=== PATIENT | female | born 1975 | race Caucasian/White ===

== ENCOUNTER 2022-01-02 21:35 | Inpatient (IN) ==
[2022-01-02] MEDS ORDERED: methylPREDNISolone SOD SUC 125 MG/2 ML VIAL IV STA (23:04)
[2022-01-02] MEDS ORDERED: ONDANSETRON ODT 4 MG TABLET PO STA (23:04)
[2022-01-02] MEDS ORDERED: FUROSEMIDE 100 MG/10 ML VIAL IV STA (23:04)
[2022-01-02] MEDS ORDERED: ONDANSETRON 4 MG/2 ML VIAL ONE (23:17)
[2022-01-02 23:25] LABS: Basophils # 0.1 10*3/uL (0.0-0.2); Basophils % 0.2 % (0.0-0.8); Eosinophils % 0.1 % (0.00-10.9); Hematocrit 21.8 VOL% (35.7-47.0); Hemoglobin 7.5 GM/DL (12.0-16.0); Immature Granulocytes % 5.1 %; Immature Granulocytes Absolute 1.03 #; Lymphocytes # 2.4 10*3/uL (1.4-4.0); Lymphocytes % 11.8 % (21.3-54.2); Mean Corpuscular HGB Conc 34.4 GM/DL (32-36); Mean Corpuscular Volume 87.9 FL (87-102); Mean Platelet Volume 8.6 FL (9.6-12.0); Monocytes # 1.4 10*3/uL (0.11-0.8); Monocytes % 6.8 % (1.7-12.7); Platelet Count 352 T/CUMM (130-400); Red Blood Count 2.48 MC/CUMM (3.8-5.5); Red Cell Distribution Width 15.6 % (9.3-17.3); White Blood Count 20.4 T/CUMM (4-12)
[2022-01-02] MEDS ORDERED: ALBUTEROL NEB SOLN 5 MG/ML 20 ML/BOTTLE CONT NEB SCH (23:30)
[2022-01-02] MEDS ORDERED: ONDANSETRON 4 MG/2 ML VIAL IV STA (23:30)
[2022-01-02] MEDS ORDERED: VANCOMYCIN INJ 1,000 MG in SODIUM CHLORIDE 0.9% 250 ML IV STA (23:33)
[2022-01-02] MEDS ORDERED: PIPERACILLIN/TAZOBACTAM 3,375 MG in SODIUM CHLORIDE 0.9% 100 ML IV STA (23:33)
[2022-01-02 23:37] LABS: Arterial Base Excess iSTAT -3 MMOL/L (-2.5-2.5); Arterial Bicarbonate iSTAT 20.4 MMOL/L (20-26); Arterial O2 Saturation iSTAT 96 % (95-100); Arterial PCO2 iSTAT 29 MM HG (35-48); Arterial PO2 iSTAT 78 MM HG (80-95); Arterial Total CO2 iSTAT 21 MMO/L (23-27); Arterial pH iSTAT 7.453 (7.35-7.45)
[2022-01-02 23:38] LABS: Alanine Aminotransferase < 9 U/L (13-56); Albumin 1.1 G/DL (3.4-5.0); Alkaline Phosphatase 56 U/L (45-117); Aspartate Amino Transferase 16 U/L (0-37); Blood Urea Nitrogen 35 MG/DL (7-18); Calcium 7.2 MG/DL (8.5-10.1); Carbon Dioxide 21 MMOL/L (21-32); Chloride 99 MMOL/L (98-107); Estimated Glom Filtration Rate 50 ML/MIN; Glucose 97 MG/DL (74-106); Osmolality,Calculated 260.4 MOS/KG (273-304); Sodium 126 MMOL/L (136-145); Total Protein 6.4 G/DL (6.4-8.2)
[2022-01-02 23:46] LABS: Lymphocytes 9 % (20-55); Platelet Estimate Increased; Total Cells Counted 100
[2022-01-02 23:51] LABS: INR 1.1; PT Patient Result 12.6 SECS (10.5-12.0)
[2022-01-03 00:32] LABS: Bacteria,Urine Occasional /HPF (Few); Mucus,Urine Occasional /LPF (Occasional); RBC,Urine 21 /HPF (0-4); Squamous Epithelial Cell,Urine Occasional /HPF (0-10)
[2022-01-03 00:33] LABS: Urine Appearance SL CLOUDY (Clear); Urine Color Yellow (Yellow)
[2022-01-03 00:34] LABS: Bilirubin,Urine Negative (Negative); Blood, Urine Large mg/dL (Negative); Glucose,Urine (UA) Negative (Negative); Ketones,Urine Negative (Negative); Nitrite,Urine Negative (Negative); Protein,Urine 100 MG/DL; Urine Urobilinogen 0.2 EU/DL (<2.0)
[2022-01-03 00:55] LABS: Barbiturates Screen,Urine Negative (Negative); Benzodiazepines Screen,Urine Negative (Negative); Cannabinoid Screen,Urine Negative (Negative); Opiate Screen,Urine Positive (Negative); Phencyclidine Screen,Urine Negative (Negative)
[2022-01-03] MEDS ORDERED: MAGNESIUM SULF RIDER 4 GM/100 ML PREMIX IV PRN (00:59)
[2022-01-03] MEDS ORDERED: GLUCAGON 1 MG VIAL IM PRN (00:59)
[2022-01-03] MEDS ORDERED: DEXTROSE 10% 250 ML BAG IV PRN ×2 (01:15→11:00)
[2022-01-03] MEDS: ALBUTEROL 2.5 MG/3 ML NEB RESP TX SCH ×4 (01:29→19:27)
[2022-01-03] MEDS ORDERED: ENOXAPARIN 40 MG/0.4 ML SYRINGE SUBCUT ONE (01:30)
[2022-01-03] MEDS: NICOTINE 21 MG/24 HR PATCH TRANSDERM SCH ×2 (03:03→09:18)
[2022-01-03] MEDS: ENOXAPARIN 80 MG/0.8 ML SYRINGE SUBCUT SCH ×2 (03:07→15:43)
[2022-01-03] MEDS ORDERED: INFLUENZA VIRUS VACCINE 0.5 ML SYRINGE IM ONE (03:19)
[2022-01-03] MEDS: AZITHROMYCIN INJ 500 MG in SODIUM CHLORIDE 0.9% 250 ML IV SCH (03:38)
[2022-01-03 06:31] LABS: Basophils # 0.1 10*3/uL (0.0-0.2); Basophils % 0.3 % (0.0-0.8); Hematocrit 20.9 VOL% (35.7-47.0); Hemoglobin 7.3 GM/DL (12.0-16.0); Immature Granulocytes % 5.1 %; Immature Granulocytes Absolute 0.97 #; Lymphocytes # 0.9 10*3/uL (1.4-4.0); Lymphocytes % 4.8 % (21.3-54.2); Mean Corpuscular HGB Conc 34.9 GM/DL (32-36); Mean Corpuscular Volume 84.6 FL (87-102); Mean Platelet Volume 8.6 FL (9.6-12.0); Monocytes # 0.3 10*3/uL (0.11-0.8); Monocytes % 1.7 % (1.7-12.7); Neutrophils % 88.1 % (38.7-73.9); Platelet Count 343 T/CUMM (130-400); Red Blood Count 2.47 MC/CUMM (3.8-5.5); Red Cell Distribution Width 15.2 % (9.3-17.3)
[2022-01-03 06:36] LABS: Basophils # 0.1 10*3/uL (0.0-0.2); Basophils % 0.3 % (0.0-0.8); Eosinophils % 0.1 % (0.00-10.9); Hematocrit 21.4 VOL% (35.7-47.0); Hemoglobin 7.3 GM/DL (12.0-16.0); Immature Granulocytes % 4.6 %; Immature Granulocytes Absolute 0.88 #; Lymphocytes # 0.8 10*3/uL (1.4-4.0); Lymphocytes % 4.4 % (21.3-54.2); Mean Corpuscular HGB Conc 34.1 GM/DL (32-36); Mean Corpuscular Volume 86.6 FL (87-102); Mean Platelet Volume 8.5 FL (9.6-12.0); Monocytes # 0.3 10*3/uL (0.11-0.8); Monocytes % 1.6 % (1.7-12.7); Platelet Count 338 T/CUMM (130-400); Red Blood Count 2.47 MC/CUMM (3.8-5.5); Red Cell Distribution Width 15.4 % (9.3-17.3)
[2022-01-03 07:00] LABS: Calcium 7.7 MG/DL (8.5-10.1); Osmolality,Calculated 267.1 MOS/KG (273-304); Potassium 4.9 MMOL/L (3.5-5.1); Risk Ratio 5.73; Thyroid Stimulating Hormone 1.78 uIU/ml (0.358-3.74); VLDL Cholesterol 17.2 MG/DL
[2022-01-03 07:04] LABS: Band Neutrophils 2 % (0-10); Hypochromia 1+; Lymphocytes 3 % (20-55); Microcytosis 1+; Total Cells Counted 100
[2022-01-03 07:05] LABS: Platelet Estimate Normal; Target Cells Slight
[2022-01-03 07:09] LABS: Folate 5.95 NG/ML (5.38-24.0); Vitamin B12 766 PG/ML (211-911)
[2022-01-03 07:13] LABS: Band Neutrophils 5 % (0-10); Hypochromia 1+; Lymphocytes 3 % (20-55); Microcytosis 1+; Promyelocytes 1 %; Total Cells Counted 100
[2022-01-03 07:14] LABS: Target Cells Slight
[2022-01-03 08:17] LABS: Sedimentation Rate-Westergren 136 MM/HR (0-20)
[2022-01-03] MEDS: FUROSEMIDE 40 MG/4 ML VIAL IV SCH (08:45)
[2022-01-03] MEDS: DOCUSATE SODIUM 100 MG CAPSULE PO SCH ×2 (08:48→21:04)
[2022-01-03] MEDS: PIPERACILLIN/TAZOBACTAM 3,375 MG in SODIUM CHLORIDE 0.9% 100 ML IV SCH ×2 (08:49→15:43)
[2022-01-03] MEDS: metroNIDAZOLE 500 MG TABLET PO SCH ×2 (08:50→21:04)
[2022-01-03] MEDS: guaiFENesin/DM ER 600-30 MG TABLET PO SCH ×2 (08:51→21:04)
[2022-01-03] MEDS: NYSTATIN 500,000 UNIT/5 ML UDCUP SWISH/SWAL SCH ×4 (08:51→21:04)
[2022-01-03] MEDS: PANTOPRAZOLE 40 MG TABLET PO SCH (08:53)
[2022-01-03] MEDS ORDERED: CALCIUM CARBONATE CHEW 500 MG TABLET PO SCH (09:00)
[2022-01-03 09:12] LABS: Hepatitis B Core IgM Quant 0.15 Index; Hepatitis B Surface Ag Quant < 0.10 Index; Hepatitis B Surface Ag Result Non-Reactive (NonReactive); Hepatitis C Virus Ab Quant > 11.00 Index; Hepatitis C Virus Ab Result Reactive (NonReactive)
[2022-01-03 09:30] LABS: Hemoglobin A1 (Alkaline) 98.3 % (96.5-98.5); Hemoglobin A2 (Alkaline) 1.7 % (1.5-3.5)
[2022-01-03] MEDS: ACETAMINOPHEN 325 MG TABLET PO PRN ×3 (09:33→21:14)
[2022-01-03] MEDS ORDERED: ALBUMIN 5% 25 GM/500 ML VIAL IV ONE (12:30)
[2022-01-03 12:34] LABS: % Iron Saturation 12.4 % (18-50)
[2022-01-03] MEDS: MENTHOL/ZINC OXIDE OINT 71 GM JAR TOP SCH ×2 (13:35→21:03)
[2022-01-03] MEDS ORDERED: ALBUMIN 25% 25 GM/100 ML VIAL IV ONE (14:30)
[2022-01-03] MEDS ORDERED: VANCOMYCIN INJ 1,000 MG in SODIUM CHLORIDE 0.9% 250 ML IV SCH (16:00)
[2022-01-03] MEDS ORDERED: ENOXAPARIN 40 MG/0.4 ML SYRINGE SUBCUT SCH (21:00)
[2022-01-04] MEDS: ALBUTEROL 2.5 MG/3 ML NEB RESP TX SCH ×4 (00:07→19:26)
[2022-01-04] MEDS: PIPERACILLIN/TAZOBACTAM 3,375 MG in SODIUM CHLORIDE 0.9% 100 ML IV SCH ×4 (00:15→23:31)
[2022-01-04] MEDS: ENOXAPARIN 80 MG/0.8 ML SYRINGE SUBCUT SCH ×2 (02:56→15:03)
[2022-01-04] MEDS: AZITHROMYCIN INJ 500 MG in SODIUM CHLORIDE 0.9% 250 ML IV SCH (04:04)
[2022-01-04 06:15] LABS: Basophils % 0.2 % (0.0-0.8); Eosinophils % 0.1 % (0.00-10.9); Hematocrit 22.2 VOL% (35.7-47.0); Hemoglobin 7.2 GM/DL (12.0-16.0); Immature Granulocytes % 3.6 %; Immature Granulocytes Absolute 0.48 #; Lymphocytes # 1.7 10*3/uL (1.4-4.0); Lymphocytes % 12.9 % (21.3-54.2); Mean Corpuscular HGB Conc 32.4 GM/DL (32-36); Mean Corpuscular Volume 87.4 FL (87-102); Mean Platelet Volume 8.4 FL (9.6-12.0); Monocytes # 0.8 10*3/uL (0.11-0.8); Monocytes % 6.1 % (1.7-12.7); Neutrophils % 77.1 % (38.7-73.9); Platelet Count 356 T/CUMM (130-400); Red Blood Count 2.54 MC/CUMM (3.8-5.5); Red Cell Distribution Width 15.8 % (9.3-17.3); White Blood Count 13.3 T/CUMM (4-12)
[2022-01-04 06:27] LABS: Calcium 7.6 MG/DL (8.5-10.1); Ferritin 725.5 ng/mL (8-252); Osmolality,Calculated 276.7 MOS/KG (273-304); Potassium 4.3 MMOL/L (3.5-5.1)
[2022-01-04 06:44] LABS: Anisocytosis 2+; Platelet Estimate Normal; Target Cells Few
[2022-01-04 06:45] LABS: Burr Cells Few; Poikilocytosis Slight
[2022-01-04] MEDS ORDERED: ALBUMIN 25% 25 GM/100 ML VIAL IV ONE (08:18)
[2022-01-04] MEDS: DOCUSATE SODIUM 100 MG CAPSULE PO SCH ×2 (08:23→20:24)
[2022-01-04] MEDS: PANTOPRAZOLE 40 MG TABLET PO SCH (08:23)
[2022-01-04] MEDS: MENTHOL/ZINC OXIDE OINT 71 GM JAR TOP SCH ×2 (08:23→20:23)
[2022-01-04] MEDS: metroNIDAZOLE 500 MG TABLET PO SCH ×2 (08:23→20:24)
[2022-01-04] MEDS: ACETAMINOPHEN 325 MG TABLET PO PRN ×2 (08:24→23:40)
[2022-01-04] MEDS: guaiFENesin/DM ER 600-30 MG TABLET PO SCH ×2 (08:24→20:23)
[2022-01-04] MEDS: NYSTATIN 500,000 UNIT/5 ML UDCUP SWISH/SWAL SCH ×4 (08:26→20:24)
[2022-01-04] MEDS: FUROSEMIDE 40 MG/4 ML VIAL IV SCH (08:30)
[2022-01-04] MEDS: FERRIC GLUCONATE COMPLEX 125 MG in SODIUM CHLORIDE 0.9% 100 ML IV SCH (11:42)
[2022-01-04] MEDS: NICOTINE 21 MG/24 HR PATCH TRANSDERM SCH (12:00)
[2022-01-04] MEDS: oxyCODONE IR 5 MG TABLET PO SCH ×3 (12:43→20:24)
[2022-01-05] MEDS: ALBUTEROL 2.5 MG/3 ML NEB RESP TX SCH ×4 (00:51→19:32)
[2022-01-05] MEDS: AZITHROMYCIN INJ 500 MG in SODIUM CHLORIDE 0.9% 250 ML IV SCH (04:17)
[2022-01-05] MEDS: ENOXAPARIN 80 MG/0.8 ML SYRINGE SUBCUT SCH ×2 (04:21→16:55)
[2022-01-05 05:51] LABS: Basophils % 0.3 % (0.0-0.8); Eosinophils % 0.1 % (0.00-10.9); Hematocrit 22.3 VOL% (35.7-47.0); Hemoglobin 7.4 GM/DL (12.0-16.0); Immature Granulocytes % 1.9 %; Immature Granulocytes Absolute 0.27 #; Lymphocytes # 1.5 10*3/uL (1.4-4.0); Lymphocytes % 10.6 % (21.3-54.2); Mean Corpuscular HGB Conc 33.2 GM/DL (32-36); Mean Corpuscular Volume 88.5 FL (87-102); Mean Platelet Volume 8.2 FL (9.6-12.0); Neutrophils % 80.1 % (38.7-73.9); Platelet Count 449 T/CUMM (130-400); Red Blood Count 2.52 MC/CUMM (3.8-5.5); Red Cell Distribution Width 15.9 % (9.3-17.3)
[2022-01-05 05:56] LABS: Alanine Aminotransferase < 6 U/L (13-56); Albumin 1.3 G/DL (3.4-5.0); Alkaline Phosphatase 44 U/L (45-117); Aspartate Amino Transferase 13 U/L (0-37); Bilirubin,Total < 0.39 MG/DL (0.20-1.00); Blood Urea Nitrogen 40 MG/DL (7-18); Calcium 7.5 MG/DL (8.5-10.1); Carbon Dioxide 21 MMOL/L (21-32); Chloride 103 MMOL/L (98-107); Estimated Glom Filtration Rate 51 ML/MIN; Glucose 127 MG/DL (74-106); Osmolality,Calculated 275.5 MOS/KG (273-304); Potassium 4.1 MMOL/L (3.5-5.1); Sodium 132 MMOL/L (136-145); Total Protein 5.8 G/DL (6.4-8.2)
[2022-01-05] MEDS: DOCUSATE SODIUM 100 MG CAPSULE PO SCH ×2 (10:00→20:23)
[2022-01-05] MEDS: guaiFENesin/DM ER 600-30 MG TABLET PO SCH ×2 (10:00→20:23)
[2022-01-05] MEDS: metroNIDAZOLE 500 MG TABLET PO SCH ×2 (10:00→20:23)
[2022-01-05] MEDS: PANTOPRAZOLE 40 MG TABLET PO SCH (10:00)
[2022-01-05] MEDS: NYSTATIN 500,000 UNIT/5 ML UDCUP SWISH/SWAL SCH ×4 (10:00→20:23)
[2022-01-05] MEDS: VANCOMYCIN INJ 1,250 MG in SODIUM CHLORIDE 0.9% 250 ML IV SCH (10:01)
[2022-01-05] MEDS: FERRIC GLUCONATE COMPLEX 125 MG in SODIUM CHLORIDE 0.9% 100 ML IV SCH (10:01)
[2022-01-05] MEDS: PIPERACILLIN/TAZOBACTAM 3,375 MG in SODIUM CHLORIDE 0.9% 100 ML IV SCH ×3 (10:01→23:44)
[2022-01-05] MEDS: MENTHOL/ZINC OXIDE OINT 71 GM JAR TOP SCH ×2 (10:02→20:25)
[2022-01-05] MEDS: oxyCODONE IR 5 MG TABLET PO SCH ×4 (10:02→20:23)
[2022-01-05] MEDS: NICOTINE 21 MG/24 HR PATCH TRANSDERM SCH (10:02)
[2022-01-05] MEDS: FUROSEMIDE 40 MG/4 ML VIAL IV SCH (10:03)
[2022-01-05] MEDS: ALBUMIN 25% 25 GM/100 ML VIAL IV SCH (12:22)
[2022-01-06] MEDS: ALBUTEROL 2.5 MG/3 ML NEB RESP TX SCH ×3 (00:48→19:48)
[2022-01-06] MEDS: ENOXAPARIN 80 MG/0.8 ML SYRINGE SUBCUT SCH (03:46)
[2022-01-06] MEDS: AZITHROMYCIN INJ 500 MG in SODIUM CHLORIDE 0.9% 250 ML IV SCH (04:23)
[2022-01-06] MEDS ORDERED: SODIUM CHLORIDE 0.9% 1,000 ML IV SCH (06:00)
[2022-01-06 06:52] LABS: Basophils # 0.1 10*3/uL (0.0-0.2); Basophils % 0.4 % (0.0-0.8); Eosinophils % 0.2 % (0.00-10.9); Hematocrit 20.3 VOL% (35.7-47.0); Hemoglobin 6.8 GM/DL (12.0-16.0); Immature Granulocytes % 1.8 %; Lymphocytes # 1.6 10*3/uL (1.4-4.0); Lymphocytes % 13.8 % (21.3-54.2); Mean Corpuscular HGB Conc 33.5 GM/DL (32-36); Mean Corpuscular Volume 88.3 FL (87-102); Mean Platelet Volume 7.9 FL (9.6-12.0); Monocytes % 8.9 % (1.7-12.7); Neutrophils % 74.9 % (38.7-73.9); Platelet Count 444 T/CUMM (130-400); Red Cell Distribution Width 15.6 % (9.3-17.3); White Blood Count 11.3 T/CUMM (4-12)
[2022-01-06 07:09] LABS: Calcium 8.1 MG/DL (8.5-10.1); Osmolality,Calculated 268.5 MOS/KG (273-304); Potassium 3.6 MMOL/L (3.5-5.1)
[2022-01-06] MEDS ORDERED: ETOMIDATE 40 MG/20 ML VIAL IV ONE (08:07)
[2022-01-06] MEDS ORDERED: propofoL 200 MG/20 ML VIAL IV ONE (08:07)
[2022-01-06] MEDS ORDERED: LIDOCAINE 2% 5 ML VIAL ONE (08:07)
[2022-01-06 09:28] LABS: Hematocrit 19.5 VOL% (35.7-47.0); Hemoglobin 6.5 GM/DL (12.0-16.0)
[2022-01-06] MEDS: NYSTATIN 500,000 UNIT/5 ML UDCUP SWISH/SWAL SCH ×4 (09:40→21:00)
[2022-01-06] MEDS: PIPERACILLIN/TAZOBACTAM 3,375 MG in SODIUM CHLORIDE 0.9% 100 ML IV SCH (09:40)
[2022-01-06] MEDS: metroNIDAZOLE 500 MG TABLET PO SCH ×2 (09:41→21:00)
[2022-01-06] MEDS: MENTHOL/ZINC OXIDE OINT 71 GM JAR TOP SCH ×2 (09:41→21:00)
[2022-01-06] MEDS: DOCUSATE SODIUM 100 MG CAPSULE PO SCH ×2 (09:41→21:00)
[2022-01-06] MEDS: oxyCODONE IR 5 MG TABLET PO SCH ×4 (09:41→21:00)
[2022-01-06] MEDS: FUROSEMIDE 40 MG/4 ML VIAL IV SCH (09:42)
[2022-01-06] MEDS: ALBUMIN 25% 25 GM/100 ML VIAL IV SCH (09:49)
[2022-01-06] MEDS: NICOTINE 21 MG/24 HR PATCH TRANSDERM SCH (09:52)
[2022-01-06] MEDS: guaiFENesin/DM ER 600-30 MG TABLET PO SCH ×2 (09:57→21:00)
[2022-01-06] MEDS: PANTOPRAZOLE 40 MG TABLET PO SCH (09:57)
[2022-01-06] MEDS: FERRIC GLUCONATE COMPLEX 125 MG in SODIUM CHLORIDE 0.9% 100 ML IV SCH (10:25)
[2022-01-06] MEDS: VANCOMYCIN INJ 1,250 MG in SODIUM CHLORIDE 0.9% 250 ML IV SCH (11:22)
[2022-01-06] MEDS ORDERED: SODIUM CHLORIDE 0.9% 1,000 ML IV PRN (11:56)
[2022-01-06] MEDS: POLYETHYLENE GLYCOL POWDER 17 GM PACK PO SCH (17:05)
[2022-01-06] MEDS: ACETAMINOPHEN 325 MG TABLET PO PRN (17:48)
[2022-01-06] MEDS: cefTRIAXone 1,000 MG in SODIUM CHLORIDE 0.9% 100 ML IV SCH (21:00)
[2022-01-07] MEDS: ALBUTEROL 2.5 MG/3 ML NEB RESP TX SCH ×4 (01:02→20:43)
[2022-01-07] MEDS: AZITHROMYCIN INJ 500 MG in SODIUM CHLORIDE 0.9% 250 ML IV SCH (04:30)
[2022-01-07] MEDS ORDERED: LACTATED RINGERS 1,000 ML IV SCH (06:30)
[2022-01-07 07:14] LABS: Basophils # 0.1 10*3/uL (0.0-0.2); Basophils % 0.6 % (0.0-0.8); Eosinophils # 0.1 10*3/uL (0.0-0.87); Eosinophils % 0.4 % (0.00-10.9); Hematocrit 23.2 VOL% (35.7-47.0); Hemoglobin 7.8 GM/DL (12.0-16.0); Immature Granulocytes % 1.8 %; Immature Granulocytes Absolute 0.22 #; Lymphocytes # 1.9 10*3/uL (1.4-4.0); Lymphocytes % 15.3 % (21.3-54.2); Mean Corpuscular HGB Conc 33.6 GM/DL (32-36); Mean Corpuscular Volume 88.9 FL (87-102); Monocytes # 0.9 10*3/uL (0.11-0.8); Monocytes % 7.5 % (1.7-12.7); Neutrophils % 74.4 % (38.7-73.9); Platelet Count 464 T/CUMM (130-400); Red Blood Count 2.61 MC/CUMM (3.8-5.5); White Blood Count 12.1 T/CUMM (4-12)
[2022-01-07 07:34] LABS: Alanine Aminotransferase < 6 U/L (13-56); Albumin 1.7 G/DL (3.4-5.0); Alkaline Phosphatase 33 U/L (45-117); Aspartate Amino Transferase 10 U/L (0-37); Blood Urea Nitrogen 22 MG/DL (7-18); Calcium 8.1 MG/DL (8.5-10.1); Carbon Dioxide 23 MMOL/L (21-32); Chloride 104 MMOL/L (98-107); Estimated Glom Filtration Rate 85 ML/MIN; Glucose 92 MG/DL (74-106); Osmolality,Calculated 272.1 MOS/KG (273-304); Potassium 3.3 MMOL/L (3.5-5.1); Sodium 135 MMOL/L (136-145); Total Protein 6.4 G/DL (6.4-8.2)
[2022-01-07] MEDS ORDERED: ETOMIDATE 20 MG/10 ML VIAL IV ONE (08:01)
[2022-01-07] MEDS ORDERED: propofoL 200 MG/20 ML VIAL IV ONE (08:01)
[2022-01-07] MEDS ORDERED: LIDOCAINE 2% 5 ML VIAL ONE (08:01)
[2022-01-07] MEDS: NYSTATIN 500,000 UNIT/5 ML UDCUP SWISH/SWAL SCH ×4 (10:34→21:15)
[2022-01-07] MEDS: guaiFENesin/DM ER 600-30 MG TABLET PO SCH ×2 (10:35→21:15)
[2022-01-07] MEDS: PANTOPRAZOLE 40 MG TABLET PO SCH (10:35)
[2022-01-07] MEDS: metroNIDAZOLE 500 MG TABLET PO SCH ×2 (10:35→21:15)
[2022-01-07] MEDS: DOCUSATE SODIUM 100 MG CAPSULE PO SCH ×2 (10:35→21:15)
[2022-01-07] MEDS: oxyCODONE IR 5 MG TABLET PO SCH ×4 (10:36→21:15)
[2022-01-07] MEDS: NICOTINE 21 MG/24 HR PATCH TRANSDERM SCH (10:36)
[2022-01-07] MEDS: VANCOMYCIN INJ 1,250 MG in SODIUM CHLORIDE 0.9% 250 ML IV SCH (10:43)
[2022-01-07] MEDS: MENTHOL/ZINC OXIDE OINT 71 GM JAR TOP SCH ×2 (10:43→21:15)
[2022-01-07] MEDS: POLYETHYLENE GLYCOL POWDER 17 GM PACK PO SCH (10:44)
[2022-01-07] MEDS: FUROSEMIDE 40 MG/4 ML VIAL IV SCH (10:44)
[2022-01-07] MEDS: RACEPINEPHRINE 0.5 ML NEB RESP TX SCH ×2 (15:08→20:44)
[2022-01-07] MEDS: cefTRIAXone 1,000 MG in SODIUM CHLORIDE 0.9% 100 ML IV SCH (21:15)
[2022-01-08] MEDS: ALBUTEROL 2.5 MG/3 ML NEB RESP TX SCH (01:10)
[2022-01-08] MEDS: ENOXAPARIN 80 MG/0.8 ML SYRINGE SUBCUT SCH ×2 (02:30→16:09)
[2022-01-08] MEDS: ACETAMINOPHEN 325 MG TABLET PO PRN (04:40)
[2022-01-08 05:49] LABS: Basophils # 0.1 10*3/uL (0.0-0.2); Basophils % 0.7 % (0.0-0.8); Eosinophils # 0.1 10*3/uL (0.0-0.87); Eosinophils % 0.8 % (0.00-10.9); Hematocrit 22.6 VOL% (35.7-47.0); Hemoglobin 7.4 GM/DL (12.0-16.0); Lymphocytes # 1.7 10*3/uL (1.4-4.0); Lymphocytes % 16.8 % (21.3-54.2); Mean Corpuscular HGB Conc 32.7 GM/DL (32-36); Mean Corpuscular Volume 91.9 FL (87-102); Monocytes # 0.8 10*3/uL (0.11-0.8); Monocytes % 8.3 % (1.7-12.7); Neutrophils % 72.4 % (38.7-73.9); Platelet Count 399 T/CUMM (130-400); Red Blood Count 2.46 MC/CUMM (3.8-5.5)
[2022-01-08 06:08] LABS: Calcium 8.5 MG/DL (8.5-10.1); Osmolality,Calculated 271.2 MOS/KG (273-304); Potassium 3.2 MMOL/L (3.5-5.1)
[2022-01-08] MEDS: RACEPINEPHRINE 0.5 ML NEB RESP TX SCH ×4 (07:29→19:40)
[2022-01-08] MEDS: VANCOMYCIN INJ 1,250 MG in SODIUM CHLORIDE 0.9% 250 ML IV SCH (09:35)
[2022-01-08] MEDS: FUROSEMIDE 40 MG/4 ML VIAL IV SCH (09:36)
[2022-01-08] MEDS: NYSTATIN 500,000 UNIT/5 ML UDCUP SWISH/SWAL SCH ×4 (09:37→22:20)
[2022-01-08] MEDS: DOCUSATE SODIUM 100 MG CAPSULE PO SCH ×2 (09:37→22:19)
[2022-01-08] MEDS: guaiFENesin/DM ER 600-30 MG TABLET PO SCH ×2 (09:37→22:19)
[2022-01-08] MEDS: oxyCODONE IR 5 MG TABLET PO SCH ×4 (09:37→22:20)
[2022-01-08] MEDS: NICOTINE 21 MG/24 HR PATCH TRANSDERM SCH (09:38)
[2022-01-08] MEDS: PANTOPRAZOLE 40 MG TABLET PO SCH (09:38)
[2022-01-08] MEDS: MENTHOL/ZINC OXIDE OINT 71 GM JAR TOP SCH ×2 (09:38→22:27)
[2022-01-08] MEDS: POLYETHYLENE GLYCOL POWDER 17 GM PACK PO SCH (09:38)
[2022-01-08] MEDS: metroNIDAZOLE 500 MG TABLET PO SCH ×2 (09:38→22:19)
[2022-01-08] MEDS: POTASSIUM CHLORIDE 20 MEQ TABLET PO PRN ×3 (11:36→17:34)
[2022-01-08] MEDS: CEFTAROLINE 600 MG in SODIUM CHLORIDE 0.9% 100 ML IV SCH ×2 (14:05→22:24)
[2022-01-08] MEDS: MAGNESIUM SULF RIDER 2 GM/50 ML PREMIX IV PRN (16:09)
[2022-01-09] MEDS: CEFTAROLINE 600 MG in SODIUM CHLORIDE 0.9% 100 ML IV SCH ×2 (05:53→14:38)
[2022-01-09] MEDS: ENOXAPARIN 80 MG/0.8 ML SYRINGE SUBCUT SCH (05:55)
[2022-01-09 06:02] LABS: Basophils # 0.1 10*3/uL (0.0-0.2); Basophils % 0.7 % (0.0-0.8); Eosinophils # 0.1 10*3/uL (0.0-0.87); Eosinophils % 1.5 % (0.00-10.9); Hematocrit 21.2 VOL% (35.7-47.0); Immature Granulocytes % 1.4 %; Immature Granulocytes Absolute 0.11 #; Lymphocytes # 1.6 10*3/uL (1.4-4.0); Lymphocytes % 19.5 % (21.3-54.2); Mean Corpuscular Volume 89.8 FL (87-102); Mean Platelet Volume 7.8 FL (9.6-12.0); Monocytes # 0.7 10*3/uL (0.11-0.8); Monocytes % 8.8 % (1.7-12.7); Neutrophils % 68.1 % (38.7-73.9); Platelet Count 365 T/CUMM (130-400); Red Blood Count 2.36 MC/CUMM (3.8-5.5); White Blood Count 8.1 T/CUMM (4-12)
[2022-01-09 06:24] LABS: Eosinophils 2 % (0-10); Lymphocytes 15 % (20-55); Total Cells Counted 100
[2022-01-09 06:25] LABS: Calcium 7.9 MG/DL (8.5-10.1); Hypochromia 1+; Microcytosis 1+; Osmolality,Calculated 271.1 MOS/KG (273-304); Platelet Estimate Adequate; Potassium 3.5 MMOL/L (3.5-5.1)
[2022-01-09] MEDS: RACEPINEPHRINE 0.5 ML NEB RESP TX SCH ×4 (07:00→19:03)
[2022-01-09] MEDS: NYSTATIN 500,000 UNIT/5 ML UDCUP SWISH/SWAL SCH ×4 (09:19→22:42)
[2022-01-09] MEDS: PANTOPRAZOLE 40 MG TABLET PO SCH ×2 (09:20→22:42)
[2022-01-09] MEDS: metroNIDAZOLE 500 MG TABLET PO SCH ×2 (09:20→22:42)
[2022-01-09] MEDS: oxyCODONE IR 5 MG TABLET PO SCH ×4 (09:20→22:42)
[2022-01-09] MEDS: DOCUSATE SODIUM 100 MG CAPSULE PO SCH ×2 (09:20→22:42)
[2022-01-09] MEDS: POTASSIUM CHLORIDE 20 MEQ TABLET PO PRN (09:20)
[2022-01-09] MEDS: guaiFENesin/DM ER 600-30 MG TABLET PO SCH ×2 (09:20→22:42)
[2022-01-09] MEDS: NICOTINE 21 MG/24 HR PATCH TRANSDERM SCH (09:21)
[2022-01-09] MEDS: FERRIC GLUCONATE COMPLEX 125 MG in SODIUM CHLORIDE 0.9% 100 ML IV SCH (09:22)
[2022-01-09] MEDS: POLYETHYLENE GLYCOL POWDER 17 GM PACK PO SCH (09:22)
[2022-01-09] MEDS: MENTHOL/ZINC OXIDE OINT 71 GM JAR TOP SCH ×2 (09:22→22:42)
[2022-01-09] MEDS ORDERED: SODIUM CHLORIDE 0.9% 1,000 ML IV PRN (10:13)
[2022-01-09] MEDS ORDERED: ENOXAPARIN 40 MG/0.4 ML SYRINGE SUBCUT SCH (12:00)
[2022-01-09] MEDS: VANCOMYCIN INJ 1,500 MG in SODIUM CHLORIDE 0.9% 500 ML IV SCH (12:03)
[2022-01-09] MEDS: ENOXAPARIN 40 MG/0.4 ML SYRINGE SUBCUT SCH (22:42)
[2022-01-10] MEDS: CEFTAROLINE 600 MG in SODIUM CHLORIDE 0.9% 100 ML IV SCH ×4 (01:30→22:27)
[2022-01-10 05:47] LABS: Basophils # 0.1 10*3/uL (0.0-0.2); Basophils % 0.8 % (0.0-0.8); Eosinophils # 0.2 10*3/uL (0.0-0.87); Eosinophils % 2.9 % (0.00-10.9); Hematocrit 25.4 VOL% (35.7-47.0); Hemoglobin 8.3 GM/DL (12.0-16.0); Immature Granulocytes % 1.2 %; Immature Granulocytes Absolute 0.09 #; Lymphocytes # 1.2 10*3/uL (1.4-4.0); Lymphocytes % 15.9 % (21.3-54.2); Mean Corpuscular HGB Conc 32.7 GM/DL (32-36); Mean Corpuscular Volume 90.7 FL (87-102); Monocytes # 0.8 10*3/uL (0.11-0.8); Monocytes % 10.5 % (1.7-12.7); Neutrophils % 68.7 % (38.7-73.9); Platelet Count 382 T/CUMM (130-400); Red Cell Distribution Width 14.9 % (9.3-17.3); White Blood Count 7.5 T/CUMM (4-12)
[2022-01-10 06:06] LABS: Calcium 8.4 MG/DL (8.5-10.1); Osmolality,Calculated 270.1 MOS/KG (273-304); Potassium 3.6 MMOL/L (3.5-5.1)
[2022-01-10] MEDS: RACEPINEPHRINE 0.5 ML NEB RESP TX SCH ×4 (07:28→19:05)
[2022-01-10] MEDS: PANTOPRAZOLE 40 MG TABLET PO SCH ×2 (08:06→22:33)
[2022-01-10] MEDS: FUROSEMIDE 40 MG TABLET PO SCH (08:06)
[2022-01-10] MEDS: DOCUSATE SODIUM 100 MG CAPSULE PO SCH ×2 (08:06→22:27)
[2022-01-10] MEDS: guaiFENesin/DM ER 600-30 MG TABLET PO SCH ×2 (08:06→22:32)
[2022-01-10] MEDS: oxyCODONE IR 5 MG TABLET PO SCH ×4 (08:06→22:27)
[2022-01-10] MEDS: MENTHOL/ZINC OXIDE OINT 71 GM JAR TOP SCH ×2 (08:07→22:32)
[2022-01-10] MEDS: ENOXAPARIN 40 MG/0.4 ML SYRINGE SUBCUT SCH ×2 (08:15→22:32)
[2022-01-10] MEDS: POLYETHYLENE GLYCOL POWDER 17 GM PACK PO SCH (08:15)
[2022-01-10] MEDS: NICOTINE 21 MG/24 HR PATCH TRANSDERM SCH (08:15)
[2022-01-10] MEDS: VANCOMYCIN INJ 1,500 MG in SODIUM CHLORIDE 0.9% 500 ML IV SCH (08:16)
[2022-01-10] MEDS: NYSTATIN 500,000 UNIT/5 ML UDCUP SWISH/SWAL SCH ×4 (08:16→22:27)
[2022-01-10] MEDS ORDERED: diphenhydrAMINE CAP 25 MG CAPSULE PO ONE (08:55)
[2022-01-10] MEDS: FERRIC GLUCONATE COMPLEX 125 MG in SODIUM CHLORIDE 0.9% 100 ML IV SCH (09:55)
[2022-01-10] MEDS ORDERED: MAGNESIUM SULF RIDER 2 GM/50 ML PREMIX IV ONE (14:20)
[2022-01-10] MEDS ORDERED: INFLUENZA VIRUS VACCINE 0.5 ML SYRINGE IM ONE (15:00)
[2022-01-10] MEDS ORDERED: MAGNESIUM CITRATE 300 ML BOTTLE PO ONE (21:00)
[2022-01-11 04:38] LABS: Basophils # 0.1 10*3/uL (0.0-0.2); Basophils % 0.7 % (0.0-0.8); Eosinophils # 0.2 10*3/uL (0.0-0.87); Eosinophils % 2.3 % (0.00-10.9); Hematocrit 26.1 VOL% (35.7-47.0); Hemoglobin 8.4 GM/DL (12.0-16.0); Immature Granulocytes Absolute 0.08 #; Lymphocytes # 1.3 10*3/uL (1.4-4.0); Lymphocytes % 16.2 % (21.3-54.2); Mean Corpuscular HGB Conc 32.2 GM/DL (32-36); Mean Corpuscular Volume 92.6 FL (87-102); Monocytes # 0.8 10*3/uL (0.11-0.8); Monocytes % 9.3 % (1.7-12.7); Neutrophils % 70.5 % (38.7-73.9); Platelet Count 366 T/CUMM (130-400); Red Blood Count 2.82 MC/CUMM (3.8-5.5); Red Cell Distribution Width 14.9 % (9.3-17.3); White Blood Count 8.2 T/CUMM (4-12)
[2022-01-11 05:04] LABS: Calcium 8.3 MG/DL (8.5-10.1); Potassium 3.4 MMOL/L (3.5-5.1)
[2022-01-11] MEDS: CEFTAROLINE 600 MG in SODIUM CHLORIDE 0.9% 100 ML IV SCH ×2 (06:25→17:36)
[2022-01-11] MEDS: RACEPINEPHRINE 0.5 ML NEB RESP TX SCH ×4 (07:35→19:00)
[2022-01-11] MEDS: FERRIC GLUCONATE COMPLEX 125 MG in SODIUM CHLORIDE 0.9% 100 ML IV SCH (10:01)
[2022-01-11] MEDS: oxyCODONE IR 5 MG TABLET PO SCH ×4 (10:02→21:45)
[2022-01-11] MEDS: NYSTATIN 500,000 UNIT/5 ML UDCUP SWISH/SWAL SCH ×4 (10:02→21:45)
[2022-01-11] MEDS: FUROSEMIDE 40 MG TABLET PO SCH (10:02)
[2022-01-11] MEDS: ENOXAPARIN 40 MG/0.4 ML SYRINGE SUBCUT SCH ×2 (10:02→21:45)
[2022-01-11] MEDS: ASPIRIN CHEW 81 MG TABLET PO SCH (10:03)
[2022-01-11] MEDS: NICOTINE 21 MG/24 HR PATCH TRANSDERM SCH (10:03)
[2022-01-11] MEDS: guaiFENesin/DM ER 600-30 MG TABLET PO SCH ×2 (10:03→21:45)
[2022-01-11] MEDS: PANTOPRAZOLE 40 MG TABLET PO SCH ×2 (10:03→21:45)
[2022-01-11] MEDS ORDERED: POTASSIUM CHLORIDE 20 MEQ TABLET PO ONE (10:56)
[2022-01-11] MEDS: POLYETHYLENE GLYCOL POWDER 17 GM PACK PO SCH (12:28)
[2022-01-11] MEDS: DOCUSATE SODIUM 100 MG CAPSULE PO SCH ×2 (12:28→21:46)
[2022-01-11] MEDS: MENTHOL/ZINC OXIDE OINT 71 GM JAR TOP SCH ×2 (12:28→21:47)
[2022-01-11] MEDS: VANCOMYCIN INJ 1,500 MG in SODIUM CHLORIDE 0.9% 500 ML IV SCH (12:53)
[2022-01-12] MEDS: CEFTAROLINE 600 MG in SODIUM CHLORIDE 0.9% 100 ML IV SCH ×3 (01:41→23:49)
[2022-01-12 04:54] LABS: Basophils # 0.1 10*3/uL (0.0-0.2); Basophils % 0.7 % (0.0-0.8); Eosinophils # 0.2 10*3/uL (0.0-0.87); Eosinophils % 2.5 % (0.00-10.9); Hematocrit 26.8 VOL% (35.7-47.0); Hemoglobin 8.6 GM/DL (12.0-16.0); Immature Granulocytes % 0.9 %; Immature Granulocytes Absolute 0.08 #; Lymphocytes # 1.5 10*3/uL (1.4-4.0); Lymphocytes % 17.5 % (21.3-54.2); Mean Corpuscular HGB Conc 32.1 GM/DL (32-36); Mean Corpuscular Volume 90.8 FL (87-102); Mean Platelet Volume 7.8 FL (9.6-12.0); Monocytes # 0.8 10*3/uL (0.11-0.8); Monocytes % 9.7 % (1.7-12.7); Neutrophils % 68.7 % (38.7-73.9); Platelet Count 322 T/CUMM (130-400); Red Blood Count 2.95 MC/CUMM (3.8-5.5); Red Cell Distribution Width 14.7 % (9.3-17.3); White Blood Count 8.5 T/CUMM (4-12)
[2022-01-12 05:20] LABS: Calcium 7.9 MG/DL (8.5-10.1); Potassium 3.4 MMOL/L (3.5-5.1)
[2022-01-12] MEDS: BISACODYL 5 MG TABLET PO SCH ×3 (06:11→22:08)
[2022-01-12] MEDS: FERRIC GLUCONATE COMPLEX 125 MG in SODIUM CHLORIDE 0.9% 100 ML IV SCH (08:58)
[2022-01-12] MEDS: POTASSIUM CHLORIDE 20 MEQ TABLET PO PRN ×2 (09:45→14:01)
[2022-01-12] MEDS: ASPIRIN CHEW 81 MG TABLET PO SCH (09:45)
[2022-01-12] MEDS: guaiFENesin/DM ER 600-30 MG TABLET PO SCH ×2 (09:45→21:02)
[2022-01-12] MEDS: FUROSEMIDE 40 MG TABLET PO SCH (09:45)
[2022-01-12] MEDS: PANTOPRAZOLE 40 MG TABLET PO SCH ×2 (09:45→21:02)
[2022-01-12] MEDS: NICOTINE 21 MG/24 HR PATCH TRANSDERM SCH (09:45)
[2022-01-12] MEDS: DOCUSATE SODIUM 100 MG CAPSULE PO SCH ×2 (09:56→21:07)
[2022-01-12] MEDS: NYSTATIN 500,000 UNIT/5 ML UDCUP SWISH/SWAL SCH ×4 (09:56→21:03)
[2022-01-12] MEDS: MENTHOL/ZINC OXIDE OINT 71 GM JAR TOP SCH ×2 (09:56→21:03)
[2022-01-12] MEDS: VANCOMYCIN INJ 1,500 MG in SODIUM CHLORIDE 0.9% 500 ML IV SCH (10:15)
[2022-01-12] MEDS: oxyCODONE IR 5 MG TABLET PO SCH ×4 (10:15→21:02)
[2022-01-12] MEDS: RACEPINEPHRINE 0.5 ML NEB RESP TX SCH ×4 (10:39→21:04)
[2022-01-12] MEDS ORDERED: POTASSIUM CHLORIDE 20 MEQ TABLET PO ONE (12:00)
[2022-01-12] MEDS ORDERED: POLYETHYLENE GLYCOL POWDER 255 GM BOTTLE PO ONE (16:00)
[2022-01-13] MEDS: ACETAMINOPHEN 325 MG TABLET PO PRN (04:38)
[2022-01-13] MEDS: RACEPINEPHRINE 0.5 ML NEB RESP TX SCH ×2 (07:11→12:27)
[2022-01-13 07:15] LABS: Basophils # 0.1 10*3/uL (0.0-0.2); Basophils % 1.1 % (0.0-0.8); Eosinophils # 0.2 10*3/uL (0.0-0.87); Eosinophils % 2.5 % (0.00-10.9); Hemoglobin 8.4 GM/DL (12.0-16.0); Immature Granulocytes % 0.6 %; Immature Granulocytes Absolute 0.05 #; Lymphocytes # 1.4 10*3/uL (1.4-4.0); Lymphocytes % 16.7 % (21.3-54.2); Mean Corpuscular HGB Conc 31.1 GM/DL (32-36); Mean Corpuscular Volume 91.8 FL (87-102); Monocytes # 0.8 10*3/uL (0.11-0.8); Monocytes % 8.8 % (1.7-12.7); Neutrophils % 70.3 % (38.7-73.9); Platelet Count 331 T/CUMM (130-400); Red Blood Count 2.94 MC/CUMM (3.8-5.5); Red Cell Distribution Width 14.7 % (9.3-17.3); White Blood Count 8.5 T/CUMM (4-12)
[2022-01-13 07:29] LABS: Calcium 8.1 MG/DL (8.5-10.1); Osmolality,Calculated 272.8 MOS/KG (273-304); Potassium 3.3 MMOL/L (3.5-5.1)
[2022-01-13 07:48] LABS: Band Neutrophils 1 % (0-10); Eosinophils 2 % (0-10); Hypochromia 1+; Lymphocytes 12 % (20-55); Microcytosis 1+; Total Cells Counted 100
[2022-01-13] MEDS: CEFTAROLINE 600 MG in SODIUM CHLORIDE 0.9% 100 ML IV SCH (08:30)
[2022-01-13 09:06] LABS: CDT Result Negative (Negative); CDT Specimen Source STOOL
[2022-01-13] MEDS: NICOTINE 21 MG/24 HR PATCH TRANSDERM SCH (09:40)
[2022-01-13] MEDS: VANCOMYCIN INJ 1,500 MG in SODIUM CHLORIDE 0.9% 500 ML IV SCH (09:40)
[2022-01-13] MEDS: oxyCODONE IR 5 MG TABLET PO SCH ×4 (09:41→21:17)
[2022-01-13] MEDS: FUROSEMIDE 40 MG TABLET PO SCH (09:41)
[2022-01-13] MEDS: PANTOPRAZOLE 40 MG TABLET PO SCH ×2 (09:41→21:18)
[2022-01-13] MEDS: NYSTATIN 500,000 UNIT/5 ML UDCUP SWISH/SWAL SCH (09:41)
[2022-01-13] MEDS: ASPIRIN CHEW 81 MG TABLET PO SCH (09:41)
[2022-01-13] MEDS: DOCUSATE SODIUM 100 MG CAPSULE PO SCH ×2 (09:41→21:18)
[2022-01-13] MEDS: guaiFENesin/DM ER 600-30 MG TABLET PO SCH ×2 (09:41→21:17)
[2022-01-13] MEDS: FERRIC GLUCONATE COMPLEX 125 MG in SODIUM CHLORIDE 0.9% 100 ML IV SCH (09:51)
[2022-01-13] MEDS: MENTHOL/ZINC OXIDE OINT 71 GM JAR TOP SCH ×2 (09:54→21:17)
[2022-01-13] MEDS: POTASSIUM CHLORIDE 20 MEQ TABLET PO PRN ×2 (10:08→12:34)
[2022-01-13] MEDS ORDERED: MAGNESIUM SULF RIDER 2 GM/50 ML PREMIX IV ONE (15:30)
[2022-01-13] MEDS ORDERED: POTASSIUM CHLORIDE 20 MEQ TABLET PO ONE (16:00)
[2022-01-13] MEDS: APIXABAN 5 MG TABLET PO SCH (21:18)
[2022-01-14 06:38] LABS: Calcium 7.9 MG/DL (8.5-10.1); Osmolality,Calculated 271.8 MOS/KG (273-304); Potassium 3.6 MMOL/L (3.5-5.1)
[2022-01-14 08:20] LABS: Basophils # 0.1 10*3/uL (0.0-0.2); Basophils % 0.7 % (0.0-0.8); Eosinophils # 0.2 10*3/uL (0.0-0.87); Eosinophils % 3.1 % (0.00-10.9); Hematocrit 24.9 VOL% (35.7-47.0); Hemoglobin 7.8 GM/DL (12.0-16.0); Immature Granulocytes % 0.8 %; Immature Granulocytes Absolute 0.06 #; Lymphocytes # 1.4 10*3/uL (1.4-4.0); Lymphocytes % 18.8 % (21.3-54.2); Mean Corpuscular HGB Conc 31.3 GM/DL (32-36); Mean Corpuscular Volume 94.7 FL (87-102); Mean Platelet Volume 8.2 FL (9.6-12.0); Monocytes # 0.7 10*3/uL (0.11-0.8); Monocytes % 9.9 % (1.7-12.7); Neutrophils % 66.7 % (38.7-73.9); Platelet Count 265 T/CUMM (130-400); Red Blood Count 2.63 MC/CUMM (3.8-5.5); Red Cell Distribution Width 14.9 % (9.3-17.3); White Blood Count 7.2 T/CUMM (4-12)
[2022-01-14] MEDS: APIXABAN 5 MG TABLET PO SCH ×2 (08:39→20:56)
[2022-01-14] MEDS: PANTOPRAZOLE 40 MG TABLET PO SCH ×2 (08:39→20:56)
[2022-01-14] MEDS: ASPIRIN CHEW 81 MG TABLET PO SCH (08:39)
[2022-01-14] MEDS: FUROSEMIDE 40 MG TABLET PO SCH (08:39)
[2022-01-14] MEDS: oxyCODONE IR 5 MG TABLET PO SCH ×4 (08:40→20:56)
[2022-01-14] MEDS: DOCUSATE SODIUM 100 MG CAPSULE PO SCH ×2 (08:40→20:56)
[2022-01-14] MEDS: NICOTINE 21 MG/24 HR PATCH TRANSDERM SCH (08:41)
[2022-01-14] MEDS: guaiFENesin/DM ER 600-30 MG TABLET PO SCH ×2 (08:43→20:56)
[2022-01-14] MEDS: POLYETHYLENE GLYCOL POWDER 17 GM PACK PO SCH (09:28)
[2022-01-14] MEDS: VANCOMYCIN INJ 1,500 MG in SODIUM CHLORIDE 0.9% 500 ML IV SCH (09:51)
[2022-01-14] MEDS: MENTHOL/ZINC OXIDE OINT 71 GM JAR TOP SCH ×2 (12:30→20:57)
[2022-01-14 14:23] LABS: Calcium 7.9 MG/DL (8.5-10.1); Osmolality,Calculated 277.5 MOS/KG (273-304); Potassium 3.5 MMOL/L (3.5-5.1)
[2022-01-14 14:50] LABS: RBC,Urine 769 /HPF (0-4); Squamous Epithelial Cell,Urine Occasional /HPF (0-10)
[2022-01-14 14:51] LABS: Bilirubin,Urine Negative (Negative); Blood, Urine Large mg/dL (Negative); Glucose,Urine (UA) Negative (Negative); Ketones,Urine Negative (Negative); Nitrite,Urine Negative (Negative); Protein,Urine 100 mg/dL (Negative); Urine Appearance Clear (Clear); Urine Color Red (Yellow); Urine Specific Gravity 1.015 (1.001-1.035); Urine pH 5.5 (4.5-8.0)
[2022-01-14 14:52] LABS: Urine Urobilinogen 0.2 eU/dL (<2.0)
[2022-01-14 15:03] LABS: Barbiturates Screen,Urine Negative (Negative); Benzodiazepines Screen,Urine Negative (Negative); Cannabinoid Screen,Urine Negative (Negative); Opiate Screen,Urine Positive (Negative); Phencyclidine Screen,Urine Negative (Negative)
[2022-01-14] MEDS: MAGNESIUM SULF RIDER 2 GM/50 ML PREMIX IV PRN (15:51)
[2022-01-14] MEDS: ACETAMINOPHEN 325 MG TABLET PO PRN (15:51)
[2022-01-15 07:39] LABS: Basophils # 0.1 10*3/uL (0.0-0.2); Basophils % 0.7 % (0.0-0.8); Eosinophils # 0.3 10*3/uL (0.0-0.87); Eosinophils % 3.7 % (0.00-10.9); Hematocrit 24.2 VOL% (35.7-47.0); Hemoglobin 7.7 GM/DL (12.0-16.0); Immature Granulocytes % 0.8 %; Immature Granulocytes Absolute 0.06 #; Lymphocytes # 1.3 10*3/uL (1.4-4.0); Lymphocytes % 16.7 % (21.3-54.2); Mean Corpuscular HGB Conc 31.8 GM/DL (32-36); Mean Corpuscular Volume 94.5 FL (87-102); Mean Platelet Volume 8.4 FL (9.6-12.0); Monocytes # 0.7 10*3/uL (0.11-0.8); Neutrophils % 69.1 % (38.7-73.9); Platelet Count 283 T/CUMM (130-400); Red Blood Count 2.56 MC/CUMM (3.8-5.5); Red Cell Distribution Width 14.7 % (9.3-17.3); White Blood Count 7.5 T/CUMM (4-12)
[2022-01-15] MEDS ORDERED: FUROSEMIDE 40 MG/4 ML VIAL IV ONE (08:30)
[2022-01-15 09:06] LABS: Calcium 8.2 MG/DL (8.5-10.1); Osmolality,Calculated 269.1 MOS/KG (273-304); Potassium 3.3 MMOL/L (3.5-5.1)
[2022-01-15] MEDS: PANTOPRAZOLE 40 MG TABLET PO SCH ×2 (09:13→20:45)
[2022-01-15] MEDS: ASPIRIN CHEW 81 MG TABLET PO SCH (09:13)
[2022-01-15] MEDS: guaiFENesin/DM ER 600-30 MG TABLET PO SCH ×2 (09:13→20:45)
[2022-01-15] MEDS: APIXABAN 5 MG TABLET PO SCH ×2 (09:14→20:45)
[2022-01-15] MEDS: MENTHOL/ZINC OXIDE OINT 71 GM JAR TOP SCH ×2 (09:15→20:45)
[2022-01-15] MEDS: oxyCODONE IR 5 MG TABLET PO SCH ×4 (09:15→20:46)
[2022-01-15] MEDS: DOCUSATE SODIUM 100 MG CAPSULE PO SCH ×2 (09:20→20:45)
[2022-01-15] MEDS: NICOTINE 21 MG/24 HR PATCH TRANSDERM SCH (09:22)
[2022-01-15] MEDS: VANCOMYCIN INJ 1,500 MG in SODIUM CHLORIDE 0.9% 500 ML IV SCH (09:24)
[2022-01-15] MEDS: POLYETHYLENE GLYCOL POWDER 17 GM PACK PO SCH (11:29)
[2022-01-15] MEDS: FUROSEMIDE 40 MG TABLET PO SCH (11:30)
[2022-01-15] MEDS ORDERED: POTASSIUM CHLORIDE 20 MEQ TABLET PO ONE (11:45)
[2022-01-16 06:39] LABS: Basophils # 0.1 10*3/uL (0.0-0.2); Basophils % 0.7 % (0.0-0.8); Eosinophils # 0.2 10*3/uL (0.0-0.87); Eosinophils % 2.9 % (0.00-10.9); Hematocrit 23.9 VOL% (35.7-47.0); Hemoglobin 7.7 GM/DL (12.0-16.0); Immature Granulocytes % 0.6 %; Immature Granulocytes Absolute 0.04 #; Lymphocytes # 1.3 10*3/uL (1.4-4.0); Lymphocytes % 19.7 % (21.3-54.2); Mean Corpuscular HGB Conc 32.2 GM/DL (32-36); Mean Corpuscular Volume 94.5 FL (87-102); Mean Platelet Volume 8.6 FL (9.6-12.0); Monocytes # 0.6 10*3/uL (0.11-0.8); Monocytes % 8.8 % (1.7-12.7); Neutrophils % 67.3 % (38.7-73.9); Platelet Count 302 T/CUMM (130-400); Red Blood Count 2.53 MC/CUMM (3.8-5.5); Red Cell Distribution Width 14.6 % (9.3-17.3); White Blood Count 6.8 T/CUMM (4-12)
[2022-01-16 07:00] LABS: Calcium 7.9 MG/DL (8.5-10.1); Osmolality,Calculated 270.1 MOS/KG (273-304); Potassium 3.4 MMOL/L (3.5-5.1)
[2022-01-16] MEDS: oxyCODONE IR 5 MG TABLET PO SCH ×4 (08:38→20:57)
[2022-01-16] MEDS: ASPIRIN CHEW 81 MG TABLET PO SCH (08:39)
[2022-01-16] MEDS: DOCUSATE SODIUM 100 MG CAPSULE PO SCH ×2 (08:39→20:58)
[2022-01-16] MEDS: APIXABAN 5 MG TABLET PO SCH ×2 (08:39→20:58)
[2022-01-16] MEDS: PANTOPRAZOLE 40 MG TABLET PO SCH ×2 (08:39→20:58)
[2022-01-16] MEDS: guaiFENesin/DM ER 600-30 MG TABLET PO SCH ×2 (08:39→20:58)
[2022-01-16] MEDS: MENTHOL/ZINC OXIDE OINT 71 GM JAR TOP SCH ×2 (08:40→20:58)
[2022-01-16] MEDS: NICOTINE 21 MG/24 HR PATCH TRANSDERM SCH (08:40)
[2022-01-16] MEDS: FUROSEMIDE 40 MG/4 ML VIAL IV SCH (08:45)
[2022-01-16] MEDS ORDERED: POTASSIUM CHLORIDE 20 MEQ TABLET PO ONE (11:11)
[2022-01-16] MEDS: POLYETHYLENE GLYCOL POWDER 17 GM PACK PO SCH (11:23)
[2022-01-17] MEDS: MENTHOL/ZINC OXIDE OINT 71 GM JAR TOP SCH ×2 (08:42→22:05)
[2022-01-17] MEDS: APIXABAN 5 MG TABLET PO SCH ×2 (08:42→22:06)
[2022-01-17] MEDS: FUROSEMIDE 40 MG/4 ML VIAL IV SCH (08:42)
[2022-01-17] MEDS: PANTOPRAZOLE 40 MG TABLET PO SCH ×2 (08:42→22:06)
[2022-01-17] MEDS: ASPIRIN CHEW 81 MG TABLET PO SCH (08:42)
[2022-01-17] MEDS: guaiFENesin/DM ER 600-30 MG TABLET PO SCH ×2 (08:43→22:06)
[2022-01-17] MEDS: oxyCODONE IR 5 MG TABLET PO SCH ×4 (08:43→22:06)
[2022-01-17] MEDS: DOCUSATE SODIUM 100 MG CAPSULE PO SCH ×2 (08:43→22:06)
[2022-01-17] MEDS: NICOTINE 21 MG/24 HR PATCH TRANSDERM SCH (08:44)
[2022-01-17] MEDS: POLYETHYLENE GLYCOL POWDER 17 GM PACK PO SCH (08:44)
[2022-01-17] MEDS ORDERED: MAGNESIUM SULF RIDER 2 GM/50 ML PREMIX IV ONE (10:30)
[2022-01-17] MEDS: MAGNESIUM SULF RIDER 2 GM/50 ML PREMIX IV PRN (10:30)
[2022-01-17 10:53] LABS: AFP Tumor 3.4 NG/ML (0-8); Cancer Antigen 19-9 6.55 U/ML (0-35); Carcinoembryonic Antigen 2.1 NG/ML (0.0-5.0)
[2022-01-17] MEDS: amLODIPine 10 MG TABLET PO SCH (11:19)
[2022-01-17 12:26] LABS: Basophils % 0.6 % (0.0-0.8); Eosinophils # 0.2 10*3/uL (0.0-0.87); Eosinophils % 3.1 % (0.00-10.9); Hematocrit 23.8 VOL% (35.7-47.0); Hemoglobin 7.6 GM/DL (12.0-16.0); Immature Granulocytes % 0.5 %; Immature Granulocytes Absolute 0.03 #; Lymphocytes # 1.2 10*3/uL (1.4-4.0); Mean Corpuscular HGB Conc 31.9 GM/DL (32-36); Mean Corpuscular Volume 92.6 FL (87-102); Mean Platelet Volume 8.2 FL (9.6-12.0); Monocytes # 0.5 10*3/uL (0.11-0.8); Monocytes % 8.1 % (1.7-12.7); Neutrophils % 68.7 % (38.7-73.9); Platelet Count 300 T/CUMM (130-400); Red Blood Count 2.57 MC/CUMM (3.8-5.5); Red Cell Distribution Width 14.5 % (9.3-17.3); White Blood Count 6.2 T/CUMM (4-12)
[2022-01-17 12:44] LABS: Calcium 7.7 MG/DL (8.5-10.1); Osmolality,Calculated 272.1 MOS/KG (273-304); Potassium 3.5 MMOL/L (3.5-5.1)
[2022-01-17] MEDS: traZODone 50 MG TABLET PO SCH (22:06)
[2022-01-18 06:45] LABS: Basophils % 0.5 % (0.0-0.8); Eosinophils # 0.2 10*3/uL (0.0-0.87); Hematocrit 22.1 VOL% (35.7-47.0); Immature Granulocytes % 0.7 %; Immature Granulocytes Absolute 0.04 #; Lymphocytes # 1.3 10*3/uL (1.4-4.0); Lymphocytes % 23.6 % (21.3-54.2); Mean Corpuscular HGB Conc 31.7 GM/DL (32-36); Mean Corpuscular Volume 93.2 FL (87-102); Mean Platelet Volume 8.4 FL (9.6-12.0); Monocytes # 0.6 10*3/uL (0.11-0.8); Monocytes % 9.9 % (1.7-12.7); Neutrophils % 61.3 % (38.7-73.9); Platelet Count 299 T/CUMM (130-400); Red Blood Count 2.37 MC/CUMM (3.8-5.5); Red Cell Distribution Width 14.6 % (9.3-17.3); White Blood Count 5.6 T/CUMM (4-12)
[2022-01-18 07:14] LABS: Calcium 7.9 MG/DL (8.5-10.1); Osmolality,Calculated 275.8 MOS/KG (273-304); Potassium 3.3 MMOL/L (3.5-5.1)
[2022-01-18] MEDS: NICOTINE 21 MG/24 HR PATCH TRANSDERM SCH (08:57)
[2022-01-18] MEDS: oxyCODONE IR 5 MG TABLET PO SCH ×4 (08:58→21:32)
[2022-01-18] MEDS: FUROSEMIDE 40 MG/4 ML VIAL IV SCH (08:58)
[2022-01-18] MEDS: amLODIPine 10 MG TABLET PO SCH (08:59)
[2022-01-18] MEDS: PANTOPRAZOLE 40 MG TABLET PO SCH ×2 (09:00→21:32)
[2022-01-18] MEDS: guaiFENesin/DM ER 600-30 MG TABLET PO SCH ×2 (09:00→21:31)
[2022-01-18] MEDS: ASPIRIN CHEW 81 MG TABLET PO SCH (09:00)
[2022-01-18] MEDS: APIXABAN 5 MG TABLET PO SCH ×2 (09:00→22:00)
[2022-01-18] MEDS: DOCUSATE SODIUM 100 MG CAPSULE PO SCH ×2 (09:00→21:58)
[2022-01-18] MEDS: POLYETHYLENE GLYCOL POWDER 17 GM PACK PO SCH (09:01)
[2022-01-18] MEDS: MENTHOL/ZINC OXIDE OINT 71 GM JAR TOP SCH ×2 (09:02→21:58)
[2022-01-18] MEDS: ACETAMINOPHEN 325 MG TABLET PO PRN (15:22)
[2022-01-18] MEDS ORDERED: POTASSIUM CHLORIDE 20 MEQ TABLET PO ONE (15:46)
[2022-01-18] MEDS: traZODone 50 MG TABLET PO SCH (21:32)
[2022-01-19] MEDS: ACETAMINOPHEN 325 MG TABLET PO PRN (02:40)
[2022-01-19 06:36] LABS: Basophils % 0.5 % (0.0-0.8); Eosinophils # 0.2 10*3/uL (0.0-0.87); Eosinophils % 3.4 % (0.00-10.9); Hematocrit 21.6 VOL% (35.7-47.0); Hemoglobin 6.9 GM/DL (12.0-16.0); Immature Granulocytes % 0.5 %; Immature Granulocytes Absolute 0.03 #; Lymphocytes # 1.5 10*3/uL (1.4-4.0); Mean Corpuscular HGB Conc 31.9 GM/DL (32-36); Mean Corpuscular Volume 93.1 FL (87-102); Mean Platelet Volume 8.3 FL (9.6-12.0); Monocytes # 0.6 10*3/uL (0.11-0.8); Monocytes % 8.8 % (1.7-12.7); Neutrophils % 63.8 % (38.7-73.9); Platelet Count 278 T/CUMM (130-400); Red Blood Count 2.32 MC/CUMM (3.8-5.5); Red Cell Distribution Width 14.5 % (9.3-17.3); White Blood Count 6.5 T/CUMM (4-12)
[2022-01-19 06:48] LABS: Calcium 7.8 MG/DL (8.5-10.1); Osmolality,Calculated 274.1 MOS/KG (273-304); Potassium 3.2 MMOL/L (3.5-5.1)
[2022-01-19] MEDS: oxyCODONE IR 5 MG TABLET PO SCH ×4 (08:30→21:11)
[2022-01-19] MEDS: POLYETHYLENE GLYCOL POWDER 17 GM PACK PO SCH (08:30)
[2022-01-19] MEDS: NICOTINE 21 MG/24 HR PATCH TRANSDERM SCH (08:31)
[2022-01-19] MEDS: FUROSEMIDE 40 MG/4 ML VIAL IV SCH ×2 (08:31→08:42)
[2022-01-19] MEDS: guaiFENesin/DM ER 600-30 MG TABLET PO SCH ×2 (08:31→21:11)
[2022-01-19] MEDS: ASPIRIN CHEW 81 MG TABLET PO SCH (08:31)
[2022-01-19] MEDS: amLODIPine 10 MG TABLET PO SCH (08:31)
[2022-01-19] MEDS: PANTOPRAZOLE 40 MG TABLET PO SCH ×2 (08:31→21:11)
[2022-01-19] MEDS: APIXABAN 5 MG TABLET PO SCH ×2 (08:32→21:11)
[2022-01-19] MEDS: MENTHOL/ZINC OXIDE OINT 71 GM JAR TOP SCH ×2 (08:32→21:12)
[2022-01-19] MEDS: DOCUSATE SODIUM 100 MG CAPSULE PO SCH ×2 (08:32→21:11)
[2022-01-19] MEDS: POTASSIUM CHLORIDE RIDER 10 MEQ/100 ML PREMIX IV PRN (10:40)
[2022-01-19] MEDS ORDERED: POTASSIUM CHLORIDE 20 MEQ TABLET PO ONE (11:13)
[2022-01-19] MEDS ORDERED: SODIUM CHLORIDE 0.9% 1,000 ML IV PRN (11:13)
[2022-01-19] MEDS: hydrALAZINE 25 MG TABLET PO SCH ×2 (12:37→21:11)
[2022-01-19] MEDS: hydrALAZINE 20 MG/1 ML VIAL IV PRN (12:45)
[2022-01-19] MEDS: diphenhydrAMINE CAP 25 MG CAPSULE PO PRN (17:32)
[2022-01-19] MEDS: DEXT 5% NACL 0.45% KCL 40 MEQ 40 MEQ/1,000 ML BAG IV SCH (21:08)
[2022-01-19] MEDS: traZODone 50 MG TABLET PO SCH (21:11)
[2022-01-20 04:47] LABS: Basophils % 0.5 % (0.0-0.8); Eosinophils # 0.2 10*3/uL (0.0-0.87); Eosinophils % 2.2 % (0.00-10.9); Immature Granulocytes % 0.5 %; Immature Granulocytes Absolute 0.04 #; Lymphocytes # 1.5 10*3/uL (1.4-4.0); Lymphocytes % 20.9 % (21.3-54.2); Mean Corpuscular HGB Conc 31.8 GM/DL (32-36); Mean Corpuscular Volume 90.6 FL (87-102); Mean Platelet Volume 8.1 FL (9.6-12.0); Monocytes # 0.7 10*3/uL (0.11-0.8); Monocytes % 8.8 % (1.7-12.7); Neutrophils % 67.1 % (38.7-73.9); Platelet Count 316 T/CUMM (130-400); Red Cell Distribution Width 14.7 % (9.3-17.3); White Blood Count 7.4 T/CUMM (4-12)
[2022-01-20 04:51] LABS: Red Blood Count 3.09 MC/CUMM (3.8-5.5)
[2022-01-20 04:52] LABS: Hemoglobin 8.9 GM/DL (12.0-16.0)
[2022-01-20 04:58] LABS: Alanine Aminotransferase < 6 U/L (13-56); Albumin 1.8 G/DL (3.4-5.0); Alkaline Phosphatase 44 U/L (45-117); Aspartate Amino Transferase 10 U/L (0-37); Bilirubin,Total < 0.39 MG/DL (0.20-1.00); Blood Urea Nitrogen 29 MG/DL (7-18); Calcium 8.1 MG/DL (8.5-10.1); Carbon Dioxide 27 MMOL/L (21-32); Chloride 104 MMOL/L (98-107); Estimated Glom Filtration Rate 16 ML/MIN; Glucose 90 MG/DL (74-106); Potassium 3.9 MMOL/L (3.5-5.1); Sodium 136 MMOL/L (136-145); Total Protein 6.6 G/DL (6.4-8.2)
[2022-01-20 05:07] LABS: Band Neutrophils 1 % (0-10); Eosinophils 3 % (0-10); Lymphocytes 27 % (20-55); Total Cells Counted 100
[2022-01-20 05:08] LABS: Atypical Lymphocytes Few; Hypochromia 1+; Microcytosis 1+; Platelet Estimate Normal
[2022-01-20 06:57] LABS: Osmolality,Calculated 274.1 MOS/KG (273-304); Potassium 3.9 MMOL/L (3.5-5.1)
[2022-01-20 08:07] LABS: Total Protein (Chem) 7.2 G/DL (6.4-8.3)
[2022-01-20] MEDS: NICOTINE 21 MG/24 HR PATCH TRANSDERM SCH (09:46)
[2022-01-20] MEDS: hydrALAZINE 25 MG TABLET PO SCH ×2 (09:47→21:17)
[2022-01-20] MEDS: PANTOPRAZOLE 40 MG TABLET PO SCH ×2 (09:47→21:17)
[2022-01-20] MEDS: ASPIRIN CHEW 81 MG TABLET PO SCH (09:47)
[2022-01-20] MEDS: oxyCODONE IR 5 MG TABLET PO SCH ×4 (09:47→21:17)
[2022-01-20] MEDS: APIXABAN 5 MG TABLET PO SCH ×2 (09:47→21:17)
[2022-01-20] MEDS: amLODIPine 10 MG TABLET PO SCH (09:47)
[2022-01-20] MEDS: DOCUSATE SODIUM 100 MG CAPSULE PO SCH ×2 (09:47→21:16)
[2022-01-20] MEDS: MENTHOL/ZINC OXIDE OINT 71 GM JAR TOP SCH ×2 (09:48→21:18)
[2022-01-20] MEDS: guaiFENesin/DM ER 600-30 MG TABLET PO SCH ×2 (09:48→21:17)
[2022-01-20] MEDS: POLYETHYLENE GLYCOL POWDER 17 GM PACK PO SCH (09:48)
[2022-01-20 12:23] LABS: Albumin (SPE) Rel % 41.1 %; Alpha 1 (SPE) Rel % 6.2 %; Alpha 2 (SPE) Rel % 15.3 %; Beta (SPE) Rel % 8.8 %; Gamma (SPE) Rel % 28.6 %
[2022-01-20 12:30] LABS: Alpha 1 (SPE) 0.4 G/DL (0.1-0.4); Alpha 2 (SPE) 1.1 G/DL (0.4-1.0); Beta (SPE) 0.6 G/DL (0.5-1.1); Gamma (SPE) 2.1 G/DL (0.7-1.7)
[2022-01-20] MEDS: diphenhydrAMINE CAP 25 MG CAPSULE PO PRN ×2 (12:39→21:21)
[2022-01-20] MEDS: traZODone 50 MG TABLET PO SCH (21:17)
[2022-01-21 05:17] LABS: Basophils % 0.5 % (0.0-0.8); Eosinophils # 0.2 10*3/uL (0.0-0.87); Eosinophils % 3.1 % (0.00-10.9); Hematocrit 26.8 VOL% (35.7-47.0); Hemoglobin 8.5 GM/DL (12.0-16.0); Immature Granulocytes % 0.5 %; Immature Granulocytes Absolute 0.03 #; Lymphocytes # 1.5 10*3/uL (1.4-4.0); Lymphocytes % 22.8 % (21.3-54.2); Mean Corpuscular HGB Conc 31.7 GM/DL (32-36); Mean Corpuscular Volume 93.4 FL (87-102); Mean Platelet Volume 8.1 FL (9.6-12.0); Monocytes # 0.6 10*3/uL (0.11-0.8); Monocytes % 9.6 % (1.7-12.7); Neutrophils % 63.5 % (38.7-73.9); Platelet Count 312 T/CUMM (130-400); Red Blood Count 2.87 MC/CUMM (3.8-5.5); Red Cell Distribution Width 14.6 % (9.3-17.3); White Blood Count 6.5 T/CUMM (4-12)
[2022-01-21 05:37] LABS: Potassium 3.9 MMOL/L (3.5-5.1)
[2022-01-21] MEDS: DEXT 5% NACL 0.45% KCL 40 MEQ 40 MEQ/1,000 ML BAG IV SCH ×2 (07:51→14:20)
[2022-01-21] MEDS: hydrALAZINE 25 MG TABLET PO SCH ×2 (09:06→20:53)
[2022-01-21] MEDS: ASPIRIN CHEW 81 MG TABLET PO SCH (09:06)
[2022-01-21] MEDS: amLODIPine 10 MG TABLET PO SCH (09:06)
[2022-01-21] MEDS: guaiFENesin/DM ER 600-30 MG TABLET PO SCH ×2 (09:06→20:53)
[2022-01-21] MEDS: NICOTINE 21 MG/24 HR PATCH TRANSDERM SCH (09:06)
[2022-01-21] MEDS: PANTOPRAZOLE 40 MG TABLET PO SCH ×2 (09:06→20:53)
[2022-01-21] MEDS: oxyCODONE IR 5 MG TABLET PO SCH ×4 (09:07→20:52)
[2022-01-21] MEDS: APIXABAN 5 MG TABLET PO SCH ×2 (09:07→20:53)
[2022-01-21] MEDS: MENTHOL/ZINC OXIDE OINT 71 GM JAR TOP SCH ×2 (09:07→20:55)
[2022-01-21] MEDS: POLYETHYLENE GLYCOL POWDER 17 GM PACK PO SCH (12:04)
[2022-01-21] MEDS: DOCUSATE SODIUM 100 MG CAPSULE PO SCH ×2 (14:20→20:53)
[2022-01-21] MEDS: traZODone 50 MG TABLET PO SCH (20:53)
[2022-01-22 06:43] LABS: Basophils % 0.6 % (0.0-0.8); Eosinophils # 0.2 10*3/uL (0.0-0.87); Eosinophils % 2.1 % (0.00-10.9); Hematocrit 26.9 VOL% (35.7-47.0); Hemoglobin 8.7 GM/DL (12.0-16.0); Immature Granulocytes % 0.4 %; Immature Granulocytes Absolute 0.03 #; Lymphocytes # 1.5 10*3/uL (1.4-4.0); Lymphocytes % 20.5 % (21.3-54.2); Mean Corpuscular HGB Conc 32.3 GM/DL (32-36); Mean Corpuscular Volume 91.5 FL (87-102); Monocytes # 0.7 10*3/uL (0.11-0.8); Neutrophils % 67.4 % (38.7-73.9); Platelet Count 313 T/CUMM (130-400); Red Blood Count 2.94 MC/CUMM (3.8-5.5); Red Cell Distribution Width 14.6 % (9.3-17.3); White Blood Count 7.2 T/CUMM (4-12)
[2022-01-22 06:57] LABS: Calcium 8.2 MG/DL (8.5-10.1); Osmolality,Calculated 273.2 MOS/KG (273-304); Potassium 4.4 MMOL/L (3.5-5.1)
[2022-01-22] MEDS: NICOTINE 21 MG/24 HR PATCH TRANSDERM SCH (08:22)
[2022-01-22] MEDS: amLODIPine 10 MG TABLET PO SCH (08:23)
[2022-01-22] MEDS: hydrALAZINE 25 MG TABLET PO SCH ×2 (08:23→21:39)
[2022-01-22] MEDS: guaiFENesin/DM ER 600-30 MG TABLET PO SCH ×2 (08:23→21:39)
[2022-01-22] MEDS: DOCUSATE SODIUM 100 MG CAPSULE PO SCH ×2 (08:23→21:39)
[2022-01-22] MEDS: APIXABAN 5 MG TABLET PO SCH ×2 (08:23→21:39)
[2022-01-22] MEDS: PANTOPRAZOLE 40 MG TABLET PO SCH ×2 (08:23→21:40)
[2022-01-22] MEDS: ASPIRIN CHEW 81 MG TABLET PO SCH (08:23)
[2022-01-22] MEDS: oxyCODONE IR 5 MG TABLET PO SCH ×4 (08:24→21:40)
[2022-01-22] MEDS: MENTHOL/ZINC OXIDE OINT 71 GM JAR TOP SCH ×2 (08:25→21:40)
[2022-01-22] MEDS: DEXT 5% NACL 0.45% KCL 40 MEQ 40 MEQ/1,000 ML BAG IV SCH (08:33)
[2022-01-22] MEDS: POLYETHYLENE GLYCOL POWDER 17 GM PACK PO SCH (08:34)
[2022-01-22] MEDS: diphenhydrAMINE CAP 25 MG CAPSULE PO PRN (16:15)
[2022-01-22] MEDS: traZODone 50 MG TABLET PO SCH (21:39)
[2022-01-23] MEDS: DEXT 5% NACL 0.45% KCL 40 MEQ 40 MEQ/1,000 ML BAG IV SCH (06:14)
[2022-01-23] MEDS: oxyCODONE IR 5 MG TABLET PO SCH ×4 (08:21→20:45)
[2022-01-23] MEDS: hydrALAZINE 25 MG TABLET PO SCH ×2 (09:28→20:46)
[2022-01-23] MEDS: guaiFENesin/DM ER 600-30 MG TABLET PO SCH ×2 (09:28→20:45)
[2022-01-23] MEDS: PANTOPRAZOLE 40 MG TABLET PO SCH ×2 (09:28→20:45)
[2022-01-23] MEDS: DOCUSATE SODIUM 100 MG CAPSULE PO SCH ×2 (09:28→20:46)
[2022-01-23] MEDS: ASPIRIN CHEW 81 MG TABLET PO SCH (09:28)
[2022-01-23] MEDS: amLODIPine 10 MG TABLET PO SCH (09:28)
[2022-01-23] MEDS: APIXABAN 5 MG TABLET PO SCH ×2 (09:28→20:46)
[2022-01-23] MEDS: MENTHOL/ZINC OXIDE OINT 71 GM JAR TOP SCH ×2 (09:29→20:46)
[2022-01-23] MEDS: POLYETHYLENE GLYCOL POWDER 17 GM PACK PO SCH (09:29)
[2022-01-23] MEDS: NICOTINE 21 MG/24 HR PATCH TRANSDERM SCH (09:30)
[2022-01-23 18:16] LABS: Total Volume,Urine 2650 ML (400-2000)
[2022-01-23 18:18] LABS: Total Protein 24 Hr Ur Result 1749 MG/24HR (0-149.1)
[2022-01-23] MEDS: traZODone 50 MG TABLET PO SCH (20:45)
[2022-01-24] MEDS: ACETAMINOPHEN 325 MG TABLET PO PRN (00:23)
[2022-01-24 06:05] LABS: Basophils # 0.1 10*3/uL (0.0-0.2); Basophils % 0.8 % (0.0-0.8); Eosinophils # 0.1 10*3/uL (0.0-0.87); Hemoglobin 8.5 GM/DL (12.0-16.0); Immature Granulocytes % 0.5 %; Immature Granulocytes Absolute 0.03 #; Lymphocytes # 1.6 10*3/uL (1.4-4.0); Lymphocytes % 24.5 % (21.3-54.2); Mean Corpuscular HGB Conc 31.5 GM/DL (32-36); Mean Corpuscular Volume 91.5 FL (87-102); Monocytes # 0.7 10*3/uL (0.11-0.8); Monocytes % 10.1 % (1.7-12.7); Neutrophils % 62.1 % (38.7-73.9); Platelet Count 284 T/CUMM (130-400); Red Blood Count 2.95 MC/CUMM (3.8-5.5); Red Cell Distribution Width 14.4 % (9.3-17.3); White Blood Count 6.5 T/CUMM (4-12)
[2022-01-24 06:23] LABS: Calcium 8.3 MG/DL (8.5-10.1); Osmolality,Calculated 277.8 MOS/KG (273-304); Potassium 4.5 MMOL/L (3.5-5.1)
[2022-01-24 06:33] LABS: 24 Hr Protein (Bench) 1749 MG/24HR (0-149.1)
[2022-01-24 07:38] LABS: Anisocytosis 1+; Band Neutrophils 2 % (0-10); Eosinophils 1 % (0-10); Lymphocytes 29 % (20-55); Macrocytosis Slight; Platelet Estimate Normal; Total Cells Counted 100
[2022-01-24] MEDS: hydrALAZINE 25 MG TABLET PO SCH ×2 (08:44→21:02)
[2022-01-24] MEDS: DOCUSATE SODIUM 100 MG CAPSULE PO SCH ×2 (08:44→21:02)
[2022-01-24] MEDS: PANTOPRAZOLE 40 MG TABLET PO SCH ×2 (08:44→21:02)
[2022-01-24] MEDS: APIXABAN 5 MG TABLET PO SCH ×2 (08:44→21:02)
[2022-01-24] MEDS: amLODIPine 10 MG TABLET PO SCH (08:44)
[2022-01-24] MEDS: ASPIRIN CHEW 81 MG TABLET PO SCH (08:44)
[2022-01-24] MEDS: guaiFENesin/DM ER 600-30 MG TABLET PO SCH ×2 (08:44→21:02)
[2022-01-24] MEDS: oxyCODONE IR 5 MG TABLET PO SCH ×4 (08:45→21:03)
[2022-01-24] MEDS: NICOTINE 21 MG/24 HR PATCH TRANSDERM SCH (08:45)
[2022-01-24] MEDS: POLYETHYLENE GLYCOL POWDER 17 GM PACK PO SCH (09:18)
[2022-01-24] MEDS: MENTHOL/ZINC OXIDE OINT 71 GM JAR TOP SCH ×2 (09:37→21:03)
[2022-01-24] MEDS: traZODone 50 MG TABLET PO SCH (21:02)
[2022-01-25] MEDS: ACETAMINOPHEN 325 MG TABLET PO PRN (00:20)
[2022-01-25] MEDS: diphenhydrAMINE CAP 25 MG CAPSULE PO PRN ×2 (00:20→21:15)
[2022-01-25 06:13] LABS: Basophils # 0.1 10*3/uL (0.0-0.2); Eosinophils # 0.2 10*3/uL (0.0-0.87); Eosinophils % 2.8 % (0.00-10.9); Hematocrit 27.7 VOL% (35.7-47.0); Hemoglobin 8.8 GM/DL (12.0-16.0); Immature Granulocytes % 0.6 %; Immature Granulocytes Absolute 0.04 #; Lymphocytes # 1.7 10*3/uL (1.4-4.0); Lymphocytes % 24.1 % (21.3-54.2); Mean Corpuscular HGB Conc 31.8 GM/DL (32-36); Mean Corpuscular Volume 91.4 FL (87-102); Mean Platelet Volume 7.9 FL (9.6-12.0); Monocytes # 0.6 10*3/uL (0.11-0.8); Neutrophils % 62.5 % (38.7-73.9); Platelet Count 281 T/CUMM (130-400); Red Blood Count 3.03 MC/CUMM (3.8-5.5); Red Cell Distribution Width 14.2 % (9.3-17.3); White Blood Count 7.1 T/CUMM (4-12)
[2022-01-25 06:36] LABS: Hypochromia 2+; Platelet Estimate Normal
[2022-01-25 06:37] LABS: Microcytosis 1+
[2022-01-25 06:45] LABS: Calcium 8.4 MG/DL (8.5-10.1); Potassium 4.2 MMOL/L (3.5-5.1)
[2022-01-25] MEDS ORDERED: ALBUMIN 25% 50 GM/200 ML VIAL IV ONE (08:32)
[2022-01-25] MEDS: PANTOPRAZOLE 40 MG TABLET PO SCH ×2 (09:39→21:16)
[2022-01-25] MEDS: APIXABAN 5 MG TABLET PO SCH ×2 (09:39→21:16)
[2022-01-25] MEDS: amLODIPine 10 MG TABLET PO SCH (09:39)
[2022-01-25] MEDS: ASPIRIN CHEW 81 MG TABLET PO SCH (09:39)
[2022-01-25] MEDS: guaiFENesin/DM ER 600-30 MG TABLET PO SCH ×2 (09:39→21:16)
[2022-01-25] MEDS: hydrALAZINE 25 MG TABLET PO SCH ×2 (09:39→21:15)
[2022-01-25] MEDS: DOCUSATE SODIUM 100 MG CAPSULE PO SCH ×2 (09:39→21:16)
[2022-01-25] MEDS: oxyCODONE IR 5 MG TABLET PO SCH ×4 (09:40→21:16)
[2022-01-25] MEDS: NICOTINE 21 MG/24 HR PATCH TRANSDERM SCH (09:40)
[2022-01-25] MEDS: POLYETHYLENE GLYCOL POWDER 17 GM PACK PO SCH (09:41)
[2022-01-25] MEDS: MENTHOL/ZINC OXIDE OINT 71 GM JAR TOP SCH ×2 (09:41→21:16)
[2022-01-25] MEDS: traZODone 50 MG TABLET PO SCH (21:16)
[2022-01-26] MEDS: amLODIPine 10 MG TABLET PO SCH (09:36)
[2022-01-26] MEDS: hydrALAZINE 25 MG TABLET PO SCH ×2 (09:36→21:11)
[2022-01-26] MEDS: guaiFENesin/DM ER 600-30 MG TABLET PO SCH ×2 (09:36→21:10)
[2022-01-26] MEDS: APIXABAN 5 MG TABLET PO SCH ×2 (09:36→21:10)
[2022-01-26] MEDS: DOCUSATE SODIUM 100 MG CAPSULE PO SCH ×2 (09:36→21:10)
[2022-01-26] MEDS: PANTOPRAZOLE 40 MG TABLET PO SCH ×2 (09:36→21:10)
[2022-01-26] MEDS: oxyCODONE IR 5 MG TABLET PO SCH ×4 (09:37→21:10)
[2022-01-26] MEDS: MENTHOL/ZINC OXIDE OINT 71 GM JAR TOP SCH ×2 (09:37→21:11)
[2022-01-26] MEDS: NICOTINE 21 MG/24 HR PATCH TRANSDERM SCH (09:37)
[2022-01-26] MEDS: POLYETHYLENE GLYCOL POWDER 17 GM PACK PO SCH (09:39)
[2022-01-26] MEDS: ASPIRIN CHEW 81 MG TABLET PO SCH (09:39)
[2022-01-26 09:48] LABS: Calcium 8.4 MG/DL (8.5-10.1); Osmolality,Calculated 281.1 MOS/KG (273-304)
[2022-01-26] MEDS: ALBUMIN 25% 25 GM/100 ML VIAL IV SCH ×2 (12:00→18:53)
[2022-01-26] MEDS: traZODone 50 MG TABLET PO SCH (21:10)
[2022-01-27] MEDS: ALBUMIN 25% 25 GM/100 ML VIAL IV SCH (03:09)
[2022-01-27] MEDS: ACETAMINOPHEN 325 MG TABLET PO PRN ×2 (04:22→18:09)
[2022-01-27 07:01] LABS: Basophils # 0.1 10*3/uL (0.0-0.2); Basophils % 0.8 % (0.0-0.8); Eosinophils # 0.2 10*3/uL (0.0-0.87); Eosinophils % 3.4 % (0.00-10.9); Hematocrit 24.5 VOL% (35.7-47.0); Hemoglobin 7.7 GM/DL (12.0-16.0); Immature Granulocytes % 0.5 %; Immature Granulocytes Absolute 0.03 #; Lymphocytes # 1.4 10*3/uL (1.4-4.0); Lymphocytes % 21.7 % (21.3-54.2); Mean Corpuscular HGB Conc 31.4 GM/DL (32-36); Mean Corpuscular Volume 91.4 FL (87-102); Mean Platelet Volume 8.2 FL (9.6-12.0); Monocytes # 0.6 10*3/uL (0.11-0.8); Monocytes % 8.6 % (1.7-12.7); Platelet Count 213 T/CUMM (130-400); Red Blood Count 2.68 MC/CUMM (3.8-5.5); Red Cell Distribution Width 14.3 % (9.3-17.3); White Blood Count 6.4 T/CUMM (4-12)
[2022-01-27 07:17] LABS: Calcium 8.5 MG/DL (8.5-10.1); Osmolality,Calculated 281.2 MOS/KG (273-304); Potassium 3.8 MMOL/L (3.5-5.1)
[2022-01-27 07:27] LABS: Eosinophils 2 % (0-10); Hypochromia 1+; Lymphocytes 19 % (20-55); Microcytosis 1+; Platelet Estimate Adequate; Total Cells Counted 100
[2022-01-27] MEDS: guaiFENesin/DM ER 600-30 MG TABLET PO SCH ×2 (08:55→22:05)
[2022-01-27] MEDS: APIXABAN 5 MG TABLET PO SCH ×2 (08:55→22:05)
[2022-01-27] MEDS: ASPIRIN CHEW 81 MG TABLET PO SCH (08:55)
[2022-01-27] MEDS: PANTOPRAZOLE 40 MG TABLET PO SCH ×2 (08:55→22:06)
[2022-01-27] MEDS: NICOTINE 21 MG/24 HR PATCH TRANSDERM SCH (08:55)
[2022-01-27] MEDS: hydrALAZINE 25 MG TABLET PO SCH ×2 (08:56→22:05)
[2022-01-27] MEDS: DOCUSATE SODIUM 100 MG CAPSULE PO SCH ×2 (08:56→22:06)
[2022-01-27] MEDS: MENTHOL/ZINC OXIDE OINT 71 GM JAR TOP SCH ×2 (08:56→22:08)
[2022-01-27] MEDS: amLODIPine 10 MG TABLET PO SCH (08:56)
[2022-01-27] MEDS: oxyCODONE IR 5 MG TABLET PO SCH ×5 (09:01→22:06)
[2022-01-27] MEDS: POLYETHYLENE GLYCOL POWDER 17 GM PACK PO SCH (09:31)
[2022-01-27] MEDS: hydrALAZINE 20 MG/1 ML VIAL IV PRN (17:28)
[2022-01-27] MEDS: diphenhydrAMINE CAP 25 MG CAPSULE PO PRN (22:06)
[2022-01-27] MEDS: traZODone 50 MG TABLET PO SCH (22:06)
[2022-01-28] MEDS: ACETAMINOPHEN 325 MG TABLET PO PRN (02:54)
[2022-01-28] MEDS: NICOTINE 21 MG/24 HR PATCH TRANSDERM SCH (08:30)
[2022-01-28] MEDS: APIXABAN 5 MG TABLET PO SCH ×2 (08:30→21:38)
[2022-01-28] MEDS: hydrALAZINE 25 MG TABLET PO SCH ×2 (08:31→21:38)
[2022-01-28] MEDS: DOCUSATE SODIUM 100 MG CAPSULE PO SCH ×2 (08:31→21:38)
[2022-01-28] MEDS: guaiFENesin/DM ER 600-30 MG TABLET PO SCH ×2 (08:31→21:38)
[2022-01-28] MEDS: ASPIRIN CHEW 81 MG TABLET PO SCH (08:31)
[2022-01-28] MEDS: oxyCODONE IR 5 MG TABLET PO SCH ×4 (08:31→21:38)
[2022-01-28] MEDS: PANTOPRAZOLE 40 MG TABLET PO SCH ×2 (08:32→21:38)
[2022-01-28] MEDS: amLODIPine 10 MG TABLET PO SCH (08:32)
[2022-01-28] MEDS: POLYETHYLENE GLYCOL POWDER 17 GM PACK PO SCH (08:34)
[2022-01-28] MEDS: MENTHOL/ZINC OXIDE OINT 71 GM JAR TOP SCH ×2 (08:34→21:37)
[2022-01-28] MEDS: traZODone 50 MG TABLET PO SCH (21:37)
[2022-01-28] MEDS: diphenhydrAMINE CAP 25 MG CAPSULE PO PRN (21:38)
[2022-01-29 06:38] LABS: Hematocrit 26.4 VOL% (35.7-47.0); Hemoglobin 8.5 GM/DL (12.0-16.0)
[2022-01-29 07:17] LABS: Calcium 8.5 MG/DL (8.5-10.1); Osmolality,Calculated 279.2 MOS/KG (273-304); Potassium 3.9 MMOL/L (3.5-5.1)
[2022-01-29] MEDS: NICOTINE 21 MG/24 HR PATCH TRANSDERM SCH (08:50)
[2022-01-29] MEDS: DOCUSATE SODIUM 100 MG CAPSULE PO SCH ×2 (08:51→20:40)
[2022-01-29] MEDS: ASPIRIN CHEW 81 MG TABLET PO SCH (08:51)
[2022-01-29] MEDS: APIXABAN 5 MG TABLET PO SCH ×2 (08:51→20:40)
[2022-01-29] MEDS: guaiFENesin/DM ER 600-30 MG TABLET PO SCH ×2 (08:51→20:40)
[2022-01-29] MEDS: PANTOPRAZOLE 40 MG TABLET PO SCH ×2 (08:51→20:40)
[2022-01-29] MEDS: hydrALAZINE 25 MG TABLET PO SCH ×2 (08:51→20:40)
[2022-01-29] MEDS: oxyCODONE IR 5 MG TABLET PO SCH ×4 (08:51→20:40)
[2022-01-29] MEDS: amLODIPine 10 MG TABLET PO SCH (08:52)
[2022-01-29] MEDS: MENTHOL/ZINC OXIDE OINT 71 GM JAR TOP SCH ×2 (08:52→20:42)
[2022-01-29] MEDS: POLYETHYLENE GLYCOL POWDER 17 GM PACK PO SCH (08:53)
[2022-01-29] MEDS: traZODone 50 MG TABLET PO SCH (20:40)
[2022-01-29] MEDS: diphenhydrAMINE CAP 25 MG CAPSULE PO PRN (20:40)
[2022-01-30] MEDS: amLODIPine 10 MG TABLET PO SCH (09:01)
[2022-01-30] MEDS: PANTOPRAZOLE 40 MG TABLET PO SCH ×2 (09:01→21:08)
[2022-01-30] MEDS: NICOTINE 21 MG/24 HR PATCH TRANSDERM SCH (09:01)
[2022-01-30] MEDS: DOCUSATE SODIUM 100 MG CAPSULE PO SCH ×2 (09:01→21:08)
[2022-01-30] MEDS: guaiFENesin/DM ER 600-30 MG TABLET PO SCH ×2 (09:01→21:08)
[2022-01-30] MEDS: ASPIRIN CHEW 81 MG TABLET PO SCH (09:01)
[2022-01-30] MEDS: oxyCODONE IR 5 MG TABLET PO SCH ×4 (09:01→21:09)
[2022-01-30] MEDS: hydrALAZINE 25 MG TABLET PO SCH ×2 (09:01→21:09)
[2022-01-30] MEDS: MENTHOL/ZINC OXIDE OINT 71 GM JAR TOP SCH ×2 (09:04→21:09)
[2022-01-30] MEDS: POLYETHYLENE GLYCOL POWDER 17 GM PACK PO SCH (09:04)
[2022-01-30] MEDS: APIXABAN 5 MG TABLET PO SCH ×2 (10:23→21:09)
[2022-01-30] MEDS ORDERED: BUMETANIDE 1 MG TABLET PO SCH (16:00)
[2022-01-30] MEDS: BUMETANIDE 1 MG TABLET PO SCH (17:41)
[2022-01-30] MEDS: traZODone 50 MG TABLET PO SCH (21:08)
[2022-01-30] MEDS: diphenhydrAMINE CAP 25 MG CAPSULE PO PRN (21:08)
[2022-01-31] MEDS: ASPIRIN CHEW 81 MG TABLET PO SCH (08:25)
[2022-01-31] MEDS: oxyCODONE IR 5 MG TABLET PO SCH ×4 (08:25→20:58)
[2022-01-31] MEDS: hydrALAZINE 25 MG TABLET PO SCH ×2 (08:25→20:57)
[2022-01-31] MEDS: amLODIPine 10 MG TABLET PO SCH (08:25)
[2022-01-31] MEDS: guaiFENesin/DM ER 600-30 MG TABLET PO SCH ×2 (08:25→20:57)
[2022-01-31] MEDS: PANTOPRAZOLE 40 MG TABLET PO SCH ×2 (08:25→20:57)
[2022-01-31] MEDS: BUMETANIDE 1 MG TABLET PO SCH ×2 (08:25→16:25)
[2022-01-31] MEDS: DOCUSATE SODIUM 100 MG CAPSULE PO SCH ×2 (08:25→20:58)
[2022-01-31] MEDS: NICOTINE 21 MG/24 HR PATCH TRANSDERM SCH (08:26)
[2022-01-31] MEDS: APIXABAN 5 MG TABLET PO SCH ×2 (08:26→20:59)
[2022-01-31] MEDS: MENTHOL/ZINC OXIDE OINT 71 GM JAR TOP SCH ×2 (09:06→20:57)
[2022-01-31] MEDS: POLYETHYLENE GLYCOL POWDER 17 GM PACK PO SCH (09:06)
[2022-01-31] MEDS: metOLazone 2.5 MG TABLET PO SCH (09:11)
[2022-01-31 09:34] LABS: Basophils # 0.1 10*3/uL (0.0-0.2); Basophils % 0.9 % (0.0-0.8); Eosinophils # 0.3 10*3/uL (0.0-0.87); Hematocrit 25.6 VOL% (35.7-47.0); Hemoglobin 8.3 GM/DL (12.0-16.0); Immature Granulocytes % 0.6 %; Immature Granulocytes Absolute 0.04 #; Lymphocytes # 1.6 10*3/uL (1.4-4.0); Mean Corpuscular HGB Conc 32.4 GM/DL (32-36); Mean Corpuscular Volume 90.8 FL (87-102); Mean Platelet Volume 8.2 FL (9.6-12.0); Monocytes # 0.6 10*3/uL (0.11-0.8); Monocytes % 8.7 % (1.7-12.7); Neutrophils % 60.8 % (38.7-73.9); Platelet Count 206 T/CUMM (130-400); Red Blood Count 2.82 MC/CUMM (3.8-5.5); Red Cell Distribution Width 13.9 % (9.3-17.3); White Blood Count 6.5 T/CUMM (4-12)
[2022-01-31 09:49] LABS: Calcium 8.5 MG/DL (8.5-10.1); Osmolality,Calculated 280.2 MOS/KG (273-304); Potassium 3.5 MMOL/L (3.5-5.1)
[2022-01-31] MEDS: traZODone 50 MG TABLET PO SCH (20:57)
[2022-01-31] MEDS: diphenhydrAMINE CAP 25 MG CAPSULE PO PRN (20:59)
[2022-02-01] MEDS: ACETAMINOPHEN 325 MG TABLET PO PRN (06:07)
[2022-02-01] MEDS: BUMETANIDE 1 MG TABLET PO SCH ×2 (09:55→16:39)
[2022-02-01] MEDS: metOLazone 2.5 MG TABLET PO SCH (09:55)
[2022-02-01] MEDS: amLODIPine 10 MG TABLET PO SCH (09:56)
[2022-02-01] MEDS: DOCUSATE SODIUM 100 MG CAPSULE PO SCH ×2 (09:56→20:38)
[2022-02-01] MEDS: oxyCODONE IR 5 MG TABLET PO SCH ×4 (09:56→20:37)
[2022-02-01] MEDS: PANTOPRAZOLE 40 MG TABLET PO SCH ×2 (09:56→20:38)
[2022-02-01] MEDS: guaiFENesin/DM ER 600-30 MG TABLET PO SCH ×2 (09:56→20:36)
[2022-02-01] MEDS: ASPIRIN CHEW 81 MG TABLET PO SCH (09:57)
[2022-02-01] MEDS: APIXABAN 5 MG TABLET PO SCH ×2 (09:57→20:37)
[2022-02-01] MEDS: hydrALAZINE 25 MG TABLET PO SCH ×2 (09:58→20:37)
[2022-02-01] MEDS: POLYETHYLENE GLYCOL POWDER 17 GM PACK PO SCH (09:59)
[2022-02-01] MEDS: MENTHOL/ZINC OXIDE OINT 71 GM JAR TOP SCH ×2 (09:59→20:41)
[2022-02-01] MEDS: NICOTINE 21 MG/24 HR PATCH TRANSDERM SCH (09:59)
[2022-02-01] MEDS: diphenhydrAMINE CAP 25 MG CAPSULE PO PRN (20:37)
[2022-02-01] MEDS: traZODone 50 MG TABLET PO SCH (20:37)
[2022-02-02 06:12] LABS: Basophils # 0.1 10*3/uL (0.0-0.2); Basophils % 0.7 % (0.0-0.8); Eosinophils # 0.3 10*3/uL (0.0-0.87); Eosinophils % 4.5 % (0.00-10.9); Hematocrit 26.7 VOL% (35.7-47.0); Hemoglobin 8.6 GM/DL (12.0-16.0); Immature Granulocytes % 0.5 %; Immature Granulocytes Absolute 0.04 #; Lymphocytes # 2.1 10*3/uL (1.4-4.0); Lymphocytes % 28.9 % (21.3-54.2); Mean Corpuscular HGB Conc 32.2 GM/DL (32-36); Mean Platelet Volume 8.1 FL (9.6-12.0); Monocytes # 0.6 10*3/uL (0.11-0.8); Monocytes % 7.6 % (1.7-12.7); Neutrophils % 57.8 % (38.7-73.9); Platelet Count 214 T/CUMM (130-400); Red Cell Distribution Width 13.9 % (9.3-17.3); White Blood Count 7.4 T/CUMM (4-12)
[2022-02-02 06:33] LABS: Osmolality,Calculated 280.1 MOS/KG (273-304); Potassium 3.3 MMOL/L (3.5-5.1)
[2022-02-02] MEDS: ASPIRIN CHEW 81 MG TABLET PO SCH (09:21)
[2022-02-02] MEDS: guaiFENesin/DM ER 600-30 MG TABLET PO SCH ×2 (09:21→20:54)
[2022-02-02] MEDS: BUMETANIDE 1 MG TABLET PO SCH ×2 (09:21→17:46)
[2022-02-02] MEDS: PANTOPRAZOLE 40 MG TABLET PO SCH ×2 (09:21→20:53)
[2022-02-02] MEDS: DOCUSATE SODIUM 100 MG CAPSULE PO SCH ×2 (09:21→20:52)
[2022-02-02] MEDS: hydrALAZINE 25 MG TABLET PO SCH ×2 (09:21→20:54)
[2022-02-02] MEDS: oxyCODONE IR 5 MG TABLET PO SCH ×4 (09:22→20:53)
[2022-02-02] MEDS: MENTHOL/ZINC OXIDE OINT 71 GM JAR TOP SCH ×2 (09:23→20:52)
[2022-02-02] MEDS: metOLazone 2.5 MG TABLET PO SCH (09:29)
[2022-02-02] MEDS: amLODIPine 10 MG TABLET PO SCH (09:30)
[2022-02-02] MEDS: APIXABAN 5 MG TABLET PO SCH ×2 (09:31→20:53)
[2022-02-02] MEDS: POLYETHYLENE GLYCOL POWDER 17 GM PACK PO SCH (09:46)
[2022-02-02] MEDS: NICOTINE 21 MG/24 HR PATCH TRANSDERM SCH (14:09)
[2022-02-02] MEDS: traZODone 50 MG TABLET PO SCH (20:53)
[2022-02-02] MEDS: diphenhydrAMINE CAP 25 MG CAPSULE PO PRN (20:53)
[2022-02-02] MEDS: ACETAMINOPHEN 325 MG TABLET PO PRN (23:32)
[2022-02-03] MEDS: guaiFENesin/DM ER 600-30 MG TABLET PO SCH ×2 (09:33→21:32)
[2022-02-03] MEDS: NICOTINE 21 MG/24 HR PATCH TRANSDERM SCH (09:33)
[2022-02-03] MEDS: hydrALAZINE 25 MG TABLET PO SCH ×2 (09:34→21:32)
[2022-02-03] MEDS: BUMETANIDE 1 MG TABLET PO SCH ×2 (09:34→17:14)
[2022-02-03] MEDS: PANTOPRAZOLE 40 MG TABLET PO SCH ×2 (09:34→21:31)
[2022-02-03] MEDS: metOLazone 2.5 MG TABLET PO SCH (09:34)
[2022-02-03] MEDS: ASPIRIN CHEW 81 MG TABLET PO SCH (09:34)
[2022-02-03] MEDS: DOCUSATE SODIUM 100 MG CAPSULE PO SCH ×2 (09:34→21:31)
[2022-02-03] MEDS: amLODIPine 10 MG TABLET PO SCH (09:35)
[2022-02-03] MEDS: oxyCODONE IR 5 MG TABLET PO SCH ×4 (09:35→21:32)
[2022-02-03] MEDS: MENTHOL/ZINC OXIDE OINT 71 GM JAR TOP SCH ×2 (09:36→21:33)
[2022-02-03] MEDS: POLYETHYLENE GLYCOL POWDER 17 GM PACK PO SCH (09:36)
[2022-02-03] MEDS: ONDANSETRON 4 MG/2 ML VIAL IV PRN (09:37)
[2022-02-03] MEDS: APIXABAN 2.5 MG TABLET PO SCH ×2 (13:06→21:32)
[2022-02-03] MEDS: APIXABAN 5 MG TABLET PO SCH (13:13)
[2022-02-03] MEDS: traZODone 50 MG TABLET PO SCH (21:31)
[2022-02-03] MEDS: diphenhydrAMINE CAP 25 MG CAPSULE PO PRN (21:31)
[2022-02-04 05:08] LABS: Basophils # 0.1 10*3/uL (0.0-0.2); Basophils % 0.6 % (0.0-0.8); Eosinophils # 0.3 10*3/uL (0.0-0.87); Eosinophils % 4.1 % (0.00-10.9); Hematocrit 25.3 VOL% (35.7-47.0); Hemoglobin 8.2 GM/DL (12.0-16.0); Immature Granulocytes % 0.3 %; Immature Granulocytes Absolute 0.02 #; Lymphocytes # 2.2 10*3/uL (1.4-4.0); Lymphocytes % 28.5 % (21.3-54.2); Mean Corpuscular HGB Conc 32.4 GM/DL (32-36); Mean Corpuscular Volume 89.4 FL (87-102); Mean Platelet Volume 7.9 FL (9.6-12.0); Monocytes # 0.7 10*3/uL (0.11-0.8); Monocytes % 8.7 % (1.7-12.7); Neutrophils % 57.8 % (38.7-73.9); Platelet Count 207 T/CUMM (130-400); Red Blood Count 2.83 MC/CUMM (3.8-5.5); Red Cell Distribution Width 13.9 % (9.3-17.3); White Blood Count 7.9 T/CUMM (4-12)
[2022-02-04 05:55] LABS: Alanine Aminotransferase 9 U/L (13-56); Albumin 2.8 G/DL (3.4-5.0); Alkaline Phosphatase 55 U/L (45-117); Aspartate Amino Transferase 8 U/L (0-37); Bilirubin,Total < 0.39 MG/DL (0.20-1.00); Blood Urea Nitrogen 52 MG/DL (7-18); Calcium 8.7 MG/DL (8.5-10.1); Carbon Dioxide 27 MMOL/L (21-32); Chloride 99 MMOL/L (98-107); Estimated Glom Filtration Rate 12 ML/MIN; Glucose 99 MG/DL (74-106); Osmolality,Calculated 288.7 MOS/KG (273-304); Sodium 138 MMOL/L (136-145); Total Protein 7.6 G/DL (6.4-8.2)
[2022-02-04] MEDS: POTASSIUM CHLORIDE RIDER 10 MEQ/100 ML PREMIX IV PRN (06:09)
[2022-02-04] MEDS: metOLazone 2.5 MG TABLET PO SCH (09:21)
[2022-02-04] MEDS: guaiFENesin/DM ER 600-30 MG TABLET PO SCH ×2 (09:21→20:51)
[2022-02-04] MEDS: ASPIRIN CHEW 81 MG TABLET PO SCH (09:21)
[2022-02-04] MEDS: hydrALAZINE 25 MG TABLET PO SCH ×2 (09:22→20:52)
[2022-02-04] MEDS: oxyCODONE IR 5 MG TABLET PO SCH ×4 (09:22→20:52)
[2022-02-04] MEDS: DOCUSATE SODIUM 100 MG CAPSULE PO SCH ×2 (09:22→20:52)
[2022-02-04] MEDS: MENTHOL/ZINC OXIDE OINT 71 GM JAR TOP SCH ×2 (09:22→20:52)
[2022-02-04] MEDS: APIXABAN 2.5 MG TABLET PO SCH ×2 (09:22→20:52)
[2022-02-04] MEDS: amLODIPine 10 MG TABLET PO SCH (09:22)
[2022-02-04] MEDS: PANTOPRAZOLE 40 MG TABLET PO SCH ×2 (09:22→20:52)
[2022-02-04] MEDS ORDERED: POTASSIUM CHLORIDE 20 MEQ TABLET PO ONE (09:30)
[2022-02-04] MEDS: BUMETANIDE 1 MG TABLET PO SCH ×2 (10:25→11:57)
[2022-02-04] MEDS: POLYETHYLENE GLYCOL POWDER 17 GM PACK PO SCH (11:43)
[2022-02-04] MEDS: NICOTINE 21 MG/24 HR PATCH TRANSDERM SCH (11:43)
[2022-02-04] MEDS: traZODone 50 MG TABLET PO SCH (20:52)
[2022-02-04] MEDS: diphenhydrAMINE CAP 25 MG CAPSULE PO PRN (20:52)
[2022-02-05] MEDS: NICOTINE 21 MG/24 HR PATCH TRANSDERM SCH ×2 (07:50→09:27)
[2022-02-05] MEDS: BUMETANIDE 1 MG TABLET PO SCH ×2 (07:51→09:27)
[2022-02-05] MEDS: oxyCODONE IR 5 MG TABLET PO SCH ×5 (07:51→21:02)
[2022-02-05] MEDS: guaiFENesin/DM ER 600-30 MG TABLET PO SCH ×3 (07:51→21:03)
[2022-02-05] MEDS: ASPIRIN CHEW 81 MG TABLET PO SCH ×2 (07:51→09:26)
[2022-02-05] MEDS: APIXABAN 2.5 MG TABLET PO SCH ×3 (07:51→21:03)
[2022-02-05] MEDS: metOLazone 2.5 MG TABLET PO SCH ×2 (07:52→09:27)
[2022-02-05] MEDS: amLODIPine 10 MG TABLET PO SCH ×2 (07:52→09:27)
[2022-02-05] MEDS: PANTOPRAZOLE 40 MG TABLET PO SCH ×3 (07:52→21:02)
[2022-02-05] MEDS: DOCUSATE SODIUM 100 MG CAPSULE PO SCH ×3 (07:52→21:03)
[2022-02-05] MEDS: hydrALAZINE 25 MG TABLET PO SCH ×3 (07:52→21:03)
[2022-02-05] MEDS: MENTHOL/ZINC OXIDE OINT 71 GM JAR TOP SCH ×3 (07:52→21:04)
[2022-02-05 09:05] LABS: Calcium 8.9 MG/DL (8.5-10.1); Osmolality,Calculated 282.4 MOS/KG (273-304); Potassium 3.2 MMOL/L (3.5-5.1)
[2022-02-05] MEDS: POLYETHYLENE GLYCOL POWDER 17 GM PACK PO SCH (09:27)
[2022-02-05] MEDS: POTASSIUM CHLORIDE 20 MEQ TABLET PO PRN ×3 (13:53→16:02)
[2022-02-05] MEDS: MAGNESIUM SULF RIDER 2 GM/50 ML PREMIX IV PRN (16:02)
[2022-02-05] MEDS: POTASSIUM CHLORIDE 20 MEQ TABLET PO SCH (16:02)
[2022-02-05] MEDS: ONDANSETRON 4 MG/2 ML VIAL IV PRN ×2 (17:51→22:28)
[2022-02-05] MEDS: traZODone 50 MG TABLET PO SCH (21:03)
[2022-02-06 05:59] LABS: Basophils # 0.1 10*3/uL (0.0-0.2); Basophils % 0.6 % (0.0-0.8); Eosinophils # 0.3 10*3/uL (0.0-0.87); Eosinophils % 3.2 % (0.00-10.9); Hematocrit 23.2 VOL% (35.7-47.0); Hemoglobin 7.4 GM/DL (12.0-16.0); Immature Granulocytes % 0.8 %; Immature Granulocytes Absolute 0.07 #; Lymphocytes # 2.3 10*3/uL (1.4-4.0); Lymphocytes % 26.2 % (21.3-54.2); Mean Corpuscular HGB Conc 31.9 GM/DL (32-36); Mean Corpuscular Volume 90.6 FL (87-102); Mean Platelet Volume 8.3 FL (9.6-12.0); Monocytes # 0.7 10*3/uL (0.11-0.8); Monocytes % 8.1 % (1.7-12.7); Neutrophils % 61.1 % (38.7-73.9); Platelet Count 208 T/CUMM (130-400); Red Blood Count 2.56 MC/CUMM (3.8-5.5); Red Cell Distribution Width 14.2 % (9.3-17.3); White Blood Count 8.9 T/CUMM (4-12)
[2022-02-06 06:16] LABS: Calcium 8.7 MG/DL (8.5-10.1); Osmolality,Calculated 284.2 MOS/KG (273-304); Potassium 4.2 MMOL/L (3.5-5.1)
[2022-02-06] MEDS: PANTOPRAZOLE 40 MG TABLET PO SCH ×2 (09:05→21:10)
[2022-02-06] MEDS: amLODIPine 10 MG TABLET PO SCH (09:05)
[2022-02-06] MEDS: POTASSIUM CHLORIDE 20 MEQ TABLET PO SCH (09:05)
[2022-02-06] MEDS: DOCUSATE SODIUM 100 MG CAPSULE PO SCH ×2 (09:05→21:09)
[2022-02-06] MEDS: BUMETANIDE 1 MG TABLET PO SCH (09:06)
[2022-02-06] MEDS: oxyCODONE IR 5 MG TABLET PO SCH ×4 (09:06→21:10)
[2022-02-06] MEDS: ASPIRIN CHEW 81 MG TABLET PO SCH (09:07)
[2022-02-06] MEDS: hydrALAZINE 25 MG TABLET PO SCH ×2 (09:07→21:10)
[2022-02-06] MEDS: guaiFENesin/DM ER 600-30 MG TABLET PO SCH ×2 (09:07→21:10)
[2022-02-06] MEDS: MENTHOL/ZINC OXIDE OINT 71 GM JAR TOP SCH ×2 (09:07→21:11)
[2022-02-06] MEDS: POLYETHYLENE GLYCOL POWDER 17 GM PACK PO SCH (09:07)
[2022-02-06] MEDS: metOLazone 2.5 MG TABLET PO SCH (09:07)
[2022-02-06] MEDS: APIXABAN 2.5 MG TABLET PO SCH ×2 (09:08→21:12)
[2022-02-06] MEDS: NICOTINE 21 MG/24 HR PATCH TRANSDERM SCH (09:08)
[2022-02-06] MEDS: cefTRIAXone 1,000 MG in SODIUM CHLORIDE 0.9% 100 ML IV SCH (09:09)
[2022-02-06] MEDS ORDERED: SODIUM CHLORIDE 0.9% 1,000 ML IV PRN (09:10)
[2022-02-06 10:36] LABS: RBC,Urine 111 /HPF (0-4); Squamous Epithelial Cell,Urine Occasional /HPF (0-10)
[2022-02-06 10:44] LABS: Bilirubin,Urine Negative (Negative); Blood, Urine Large mg/dL (Negative); Glucose,Urine (UA) Negative (Negative); Ketones,Urine Negative (Negative); Nitrite,Urine Negative (Negative); Protein,Urine 100 mg/dL (Negative); Urine Appearance Clear (Clear); Urine Color Red (Yellow); Urine Urobilinogen 0.2 eU/dL (<2.0)
[2022-02-06 18:45] LABS: Hematocrit 27.1 VOL% (35.7-47.0); Hemoglobin 8.8 GM/DL (12.0-16.0)
[2022-02-06] MEDS: ONDANSETRON 4 MG/2 ML VIAL IV PRN (21:07)
[2022-02-06] MEDS: traZODone 50 MG TABLET PO SCH (21:10)
[2022-02-07 06:17] LABS: Basophils # 0.1 10*3/uL (0.0-0.2); Basophils % 0.9 % (0.0-0.8); Eosinophils # 0.3 10*3/uL (0.0-0.87); Eosinophils % 3.4 % (0.00-10.9); Hematocrit 31.7 VOL% (35.7-47.0); Hemoglobin 10.1 GM/DL (12.0-16.0); Immature Granulocytes % 0.3 %; Immature Granulocytes Absolute 0.03 #; Lymphocytes # 2.3 10*3/uL (1.4-4.0); Lymphocytes % 24.8 % (21.3-54.2); Mean Corpuscular HGB Conc 31.9 GM/DL (32-36); Mean Corpuscular Volume 91.1 FL (87-102); Mean Platelet Volume 8.4 FL (9.6-12.0); Monocytes # 0.7 10*3/uL (0.11-0.8); Monocytes % 7.5 % (1.7-12.7); Neutrophils % 63.1 % (38.7-73.9); Platelet Count 279 T/CUMM (130-400); Red Blood Count 3.48 MC/CUMM (3.8-5.5); Red Cell Distribution Width 14.1 % (9.3-17.3); White Blood Count 9.2 T/CUMM (4-12)
[2022-02-07 06:29] LABS: Calcium 9.4 MG/DL (8.5-10.1); Osmolality,Calculated 283.2 MOS/KG (273-304); Potassium 4.6 MMOL/L (3.5-5.1)
[2022-02-07] MEDS: cefTRIAXone 1,000 MG in SODIUM CHLORIDE 0.9% 100 ML IV SCH (10:09)
[2022-02-07] MEDS: guaiFENesin/DM ER 600-30 MG TABLET PO SCH ×2 (10:09→21:24)
[2022-02-07] MEDS: DOCUSATE SODIUM 100 MG CAPSULE PO SCH ×2 (10:10→21:24)
[2022-02-07] MEDS: hydrALAZINE 25 MG TABLET PO SCH (10:10)
[2022-02-07] MEDS: oxyCODONE IR 5 MG TABLET PO SCH ×4 (10:10→21:24)
[2022-02-07] MEDS: amLODIPine 10 MG TABLET PO SCH (10:10)
[2022-02-07] MEDS: BUMETANIDE 1 MG TABLET PO SCH (10:11)
[2022-02-07] MEDS: metOLazone 2.5 MG TABLET PO SCH (10:11)
[2022-02-07] MEDS: POTASSIUM CHLORIDE 20 MEQ TABLET PO SCH (10:11)
[2022-02-07] MEDS: PANTOPRAZOLE 40 MG TABLET PO SCH ×2 (10:11→21:24)
[2022-02-07] MEDS: APIXABAN 2.5 MG TABLET PO SCH ×2 (10:11→21:24)
[2022-02-07] MEDS: ASPIRIN CHEW 81 MG TABLET PO SCH (10:11)
[2022-02-07] MEDS: POLYETHYLENE GLYCOL POWDER 17 GM PACK PO SCH (10:12)
[2022-02-07] MEDS: NICOTINE 21 MG/24 HR PATCH TRANSDERM SCH (10:12)
[2022-02-07] MEDS: MENTHOL/ZINC OXIDE OINT 71 GM JAR TOP SCH ×2 (10:12→21:25)
[2022-02-07] MEDS: ONDANSETRON 4 MG/2 ML VIAL IV PRN ×2 (15:07→21:59)
[2022-02-07] MEDS ORDERED: buPROPion SR 100 MG TABLET PO SCH (21:00)
[2022-02-07] MEDS: cloNIDine 0.1 MG TABLET PO SCH (21:24)
[2022-02-07] MEDS: traZODone 50 MG TABLET PO SCH (21:25)
[2022-02-08 06:27] LABS: Calcium 9.3 MG/DL (8.5-10.1); Osmolality,Calculated 289.8 MOS/KG (273-304); Potassium 4.4 MMOL/L (3.5-5.1)
[2022-02-08] MEDS: oxyCODONE IR 5 MG TABLET PO SCH ×4 (10:36→21:04)
[2022-02-08] MEDS: DOCUSATE SODIUM 100 MG CAPSULE PO SCH ×2 (10:37→21:03)
[2022-02-08] MEDS: MENTHOL/ZINC OXIDE OINT 71 GM JAR TOP SCH ×2 (10:44→21:08)
[2022-02-08] MEDS: ASPIRIN CHEW 81 MG TABLET PO SCH (10:45)
[2022-02-08] MEDS: BUMETANIDE 1 MG TABLET PO SCH (10:45)
[2022-02-08] MEDS: metOLazone 2.5 MG TABLET PO SCH (10:46)
[2022-02-08] MEDS: PANTOPRAZOLE 40 MG TABLET PO SCH ×2 (10:46→21:04)
[2022-02-08] MEDS: APIXABAN 2.5 MG TABLET PO SCH ×2 (10:47→21:04)
[2022-02-08] MEDS: NICOTINE 21 MG/24 HR PATCH TRANSDERM SCH (10:47)
[2022-02-08] MEDS: POLYETHYLENE GLYCOL POWDER 17 GM PACK PO SCH ×2 (10:47→12:56)
[2022-02-08] MEDS: buPROPion SR 100 MG TABLET PO SCH ×2 (10:47→21:04)
[2022-02-08] MEDS: guaiFENesin/DM ER 600-30 MG TABLET PO SCH ×2 (10:47→21:04)
[2022-02-08] MEDS: ONDANSETRON 4 MG/2 ML VIAL IV PRN ×2 (10:48→21:08)
[2022-02-08] MEDS: cefTRIAXone 1,000 MG in SODIUM CHLORIDE 0.9% 100 ML IV SCH (12:46)
[2022-02-08] MEDS: traZODone 50 MG TABLET PO SCH (21:04)
[2022-02-08] MEDS: cloNIDine 0.1 MG TABLET PO SCH (21:04)
[2022-02-08] MEDS: diphenhydrAMINE CAP 25 MG CAPSULE PO PRN (23:29)
[2022-02-09 06:23] LABS: Hemoglobin 8.4 GM/DL (12.0-16.0)
[2022-02-09 06:39] LABS: Calcium 9.4 MG/DL (8.5-10.1); Osmolality,Calculated 287.2 MOS/KG (273-304); Potassium 4.1 MMOL/L (3.5-5.1)
[2022-02-09] MEDS: NICOTINE 21 MG/24 HR PATCH TRANSDERM SCH ×2 (09:18→16:02)
[2022-02-09] MEDS: buPROPion SR 150 MG TABLET PO SCH ×2 (09:18→20:52)
[2022-02-09] MEDS: ASPIRIN CHEW 81 MG TABLET PO SCH (09:18)
[2022-02-09] MEDS: metOLazone 2.5 MG TABLET PO SCH (09:18)
[2022-02-09] MEDS: PANTOPRAZOLE 40 MG TABLET PO SCH ×2 (09:19→20:52)
[2022-02-09] MEDS: BUMETANIDE 1 MG TABLET PO SCH (09:19)
[2022-02-09] MEDS: APIXABAN 2.5 MG TABLET PO SCH ×2 (09:19→20:51)
[2022-02-09] MEDS: DOCUSATE SODIUM 100 MG CAPSULE PO SCH ×2 (09:19→21:35)
[2022-02-09] MEDS: guaiFENesin/DM ER 600-30 MG TABLET PO SCH ×2 (09:19→20:52)
[2022-02-09] MEDS: POLYETHYLENE GLYCOL POWDER 17 GM PACK PO SCH (09:19)
[2022-02-09] MEDS: cefTRIAXone 1,000 MG in SODIUM CHLORIDE 0.9% 100 ML IV SCH (09:20)
[2022-02-09] MEDS: MENTHOL/ZINC OXIDE OINT 71 GM JAR TOP SCH ×2 (09:47→20:53)
[2022-02-09] MEDS: oxyCODONE IR 5 MG TABLET PO SCH ×4 (09:47→20:52)
[2022-02-09] MEDS: NORTRIPTYLINE 25 MG CAPSULE PO SCH (20:52)
[2022-02-09] MEDS: MELATONIN 3 MG TABLET PO PRN (20:52)
[2022-02-09] MEDS: cloNIDine 0.1 MG TABLET PO SCH (20:52)
[2022-02-09] MEDS: ONDANSETRON 4 MG/2 ML VIAL IV PRN (20:55)
[2022-02-10 05:05] LABS: Basophils # 0.1 10*3/uL (0.0-0.2); Basophils % 0.7 % (0.0-0.8); Eosinophils # 0.2 10*3/uL (0.0-0.87); Eosinophils % 2.5 % (0.00-10.9); Hematocrit 27.5 VOL% (35.7-47.0); Hemoglobin 8.5 GM/DL (12.0-16.0); Immature Granulocytes % 0.4 %; Immature Granulocytes Absolute 0.03 #; Lymphocytes # 2.4 10*3/uL (1.4-4.0); Lymphocytes % 28.8 % (21.3-54.2); Mean Corpuscular HGB Conc 30.9 GM/DL (32-36); Mean Corpuscular Volume 91.7 FL (87-102); Mean Platelet Volume 8.5 FL (9.6-12.0); Monocytes # 0.8 10*3/uL (0.11-0.8); Neutrophils % 58.6 % (38.7-73.9); Platelet Count 260 T/CUMM (130-400); White Blood Count 8.4 T/CUMM (4-12)
[2022-02-10 05:26] LABS: Calcium 9.1 MG/DL (8.5-10.1); Osmolality,Calculated 295.8 MOS/KG (273-304); Potassium 3.9 MMOL/L (3.5-5.1)
[2022-02-10] MEDS: metOLazone 2.5 MG TABLET PO SCH (08:51)
[2022-02-10] MEDS: cloNIDine 0.1 MG TABLET PO SCH ×2 (08:51→20:12)
[2022-02-10] MEDS: ASPIRIN CHEW 81 MG TABLET PO SCH (08:51)
[2022-02-10] MEDS: BUMETANIDE 1 MG TABLET PO SCH (08:51)
[2022-02-10] MEDS: guaiFENesin/DM ER 600-30 MG TABLET PO SCH ×2 (08:51→20:11)
[2022-02-10] MEDS: buPROPion SR 150 MG TABLET PO SCH ×2 (08:51→20:12)
[2022-02-10] MEDS: PANTOPRAZOLE 40 MG TABLET PO SCH ×2 (08:52→20:12)
[2022-02-10] MEDS: MENTHOL/ZINC OXIDE OINT 71 GM JAR TOP SCH ×2 (08:52→20:23)
[2022-02-10] MEDS: APIXABAN 2.5 MG TABLET PO SCH ×2 (08:52→20:11)
[2022-02-10] MEDS: oxyCODONE IR 5 MG TABLET PO SCH ×4 (08:52→20:11)
[2022-02-10] MEDS: DOCUSATE SODIUM 100 MG CAPSULE PO SCH ×2 (08:52→20:12)
[2022-02-10] MEDS: NICOTINE 21 MG/24 HR PATCH TRANSDERM SCH (08:53)
[2022-02-10] MEDS: ONDANSETRON 4 MG/2 ML VIAL IV PRN ×2 (09:00→20:23)
[2022-02-10] MEDS: POLYETHYLENE GLYCOL POWDER 17 GM PACK PO SCH (09:31)
[2022-02-10] MEDS: cefTRIAXone 1,000 MG in SODIUM CHLORIDE 0.9% 100 ML IV SCH (10:35)
[2022-02-10] MEDS: MELATONIN 3 MG TABLET PO PRN (20:12)
[2022-02-10] MEDS: NORTRIPTYLINE 25 MG CAPSULE PO SCH (20:12)
[2022-02-11 06:37] LABS: Calcium 9.5 MG/DL (8.5-10.1); Osmolality,Calculated 291.8 MOS/KG (273-304); Potassium 4.2 MMOL/L (3.5-5.1)
[2022-02-11] MEDS: cefTRIAXone 1,000 MG in SODIUM CHLORIDE 0.9% 100 ML IV SCH (08:05)
[2022-02-11] MEDS: buPROPion SR 150 MG TABLET PO SCH ×2 (08:06→20:35)
[2022-02-11] MEDS: cloNIDine 0.1 MG TABLET PO SCH ×2 (08:06→20:35)
[2022-02-11] MEDS: ASPIRIN CHEW 81 MG TABLET PO SCH (08:06)
[2022-02-11] MEDS: APIXABAN 2.5 MG TABLET PO SCH ×2 (08:06→20:36)
[2022-02-11] MEDS: guaiFENesin/DM ER 600-30 MG TABLET PO SCH ×2 (08:06→20:35)
[2022-02-11] MEDS: BUMETANIDE 1 MG TABLET PO SCH (08:06)
[2022-02-11] MEDS: PANTOPRAZOLE 40 MG TABLET PO SCH ×2 (08:06→20:36)
[2022-02-11] MEDS: metOLazone 2.5 MG TABLET PO SCH (08:06)
[2022-02-11] MEDS: oxyCODONE IR 5 MG TABLET PO SCH ×4 (08:07→20:35)
[2022-02-11] MEDS: MENTHOL/ZINC OXIDE OINT 71 GM JAR TOP SCH ×2 (08:08→20:34)
[2022-02-11] MEDS: DOCUSATE SODIUM 100 MG CAPSULE PO SCH ×2 (08:08→20:36)
[2022-02-11] MEDS: POLYETHYLENE GLYCOL POWDER 17 GM PACK PO SCH (08:09)
[2022-02-11] MEDS: ONDANSETRON 4 MG/2 ML VIAL IV PRN ×2 (08:10→20:41)
[2022-02-11] MEDS: NICOTINE 21 MG/24 HR PATCH TRANSDERM SCH (08:10)
[2022-02-11] MEDS: NORTRIPTYLINE 25 MG CAPSULE PO SCH (20:35)
[2022-02-11] MEDS: MELATONIN 3 MG TABLET PO PRN (20:35)
[2022-02-12] MEDS: metOLazone 2.5 MG TABLET PO SCH (08:54)
[2022-02-12] MEDS: ASPIRIN CHEW 81 MG TABLET PO SCH (08:55)
[2022-02-12] MEDS: buPROPion SR 150 MG TABLET PO SCH ×2 (08:55→21:25)
[2022-02-12] MEDS: BUMETANIDE 1 MG TABLET PO SCH (08:55)
[2022-02-12] MEDS: oxyCODONE IR 5 MG TABLET PO SCH ×4 (08:56→21:24)
[2022-02-12] MEDS: guaiFENesin/DM ER 600-30 MG TABLET PO SCH ×2 (08:56→21:25)
[2022-02-12] MEDS: APIXABAN 2.5 MG TABLET PO SCH ×2 (08:56→21:25)
[2022-02-12] MEDS: cloNIDine 0.1 MG TABLET PO SCH ×2 (08:56→21:24)
[2022-02-12] MEDS: PANTOPRAZOLE 40 MG TABLET PO SCH ×2 (08:56→21:25)
[2022-02-12] MEDS: DOCUSATE SODIUM 100 MG CAPSULE PO SCH ×2 (08:56→21:25)
[2022-02-12] MEDS: MENTHOL/ZINC OXIDE OINT 71 GM JAR TOP SCH ×2 (08:57→21:26)
[2022-02-12] MEDS: cefTRIAXone 1,000 MG in SODIUM CHLORIDE 0.9% 100 ML IV SCH (08:57)
[2022-02-12] MEDS: POLYETHYLENE GLYCOL POWDER 17 GM PACK PO SCH (08:57)
[2022-02-12] MEDS: NICOTINE 21 MG/24 HR PATCH TRANSDERM SCH (09:25)
[2022-02-12] MEDS: NORTRIPTYLINE 25 MG CAPSULE PO SCH (21:23)
[2022-02-12] MEDS: MELATONIN 3 MG TABLET PO PRN (21:23)
[2022-02-12] MEDS: ONDANSETRON 4 MG/2 ML VIAL IV PRN (21:34)
[2022-02-12 22:21] LABS: Barbiturates Screen,Urine Negative (Negative); Benzodiazepines Screen,Urine Negative (Negative); Cannabinoid Screen,Urine Negative (Negative); Opiate Screen,Urine Positive (Negative); Phencyclidine Screen,Urine Negative (Negative)
[2022-02-13 06:10] LABS: Basophils # 0.1 10*3/uL (0.0-0.2); Basophils % 0.6 % (0.0-0.8); Eosinophils # 0.3 10*3/uL (0.0-0.87); Eosinophils % 3.5 % (0.00-10.9); Hematocrit 29.9 VOL% (35.7-47.0); Hemoglobin 9.5 GM/DL (12.0-16.0); Immature Granulocytes % 0.5 %; Immature Granulocytes Absolute 0.04 #; Lymphocytes # 2.3 10*3/uL (1.4-4.0); Lymphocytes % 29.5 % (21.3-54.2); Mean Corpuscular HGB Conc 31.8 GM/DL (32-36); Mean Corpuscular Volume 91.4 FL (87-102); Mean Platelet Volume 8.3 FL (9.6-12.0); Monocytes # 0.7 10*3/uL (0.11-0.8); Monocytes % 8.7 % (1.7-12.7); Neutrophils % 57.2 % (38.7-73.9); Platelet Count 309 T/CUMM (130-400); Red Blood Count 3.27 MC/CUMM (3.8-5.5); Red Cell Distribution Width 13.8 % (9.3-17.3); White Blood Count 7.8 T/CUMM (4-12)
[2022-02-13 06:27] LABS: Calcium 9.3 MG/DL (8.5-10.1); Osmolality,Calculated 291.1 MOS/KG (273-304); Potassium 4.1 MMOL/L (3.5-5.1)
[2022-02-13] MEDS: cloNIDine 0.1 MG TABLET PO SCH ×2 (08:17→20:47)
[2022-02-13] MEDS: guaiFENesin/DM ER 600-30 MG TABLET PO SCH ×2 (08:17→20:48)
[2022-02-13] MEDS: NICOTINE 21 MG/24 HR PATCH TRANSDERM SCH (08:17)
[2022-02-13] MEDS: oxyCODONE IR 5 MG TABLET PO SCH ×4 (08:17→20:49)
[2022-02-13] MEDS: buPROPion SR 150 MG TABLET PO SCH ×2 (08:17→20:48)
[2022-02-13] MEDS: DOCUSATE SODIUM 100 MG CAPSULE PO SCH ×2 (08:17→20:49)
[2022-02-13] MEDS: ASPIRIN CHEW 81 MG TABLET PO SCH (08:17)
[2022-02-13] MEDS: APIXABAN 2.5 MG TABLET PO SCH ×2 (08:17→20:48)
[2022-02-13] MEDS: PANTOPRAZOLE 40 MG TABLET PO SCH ×2 (08:18→20:47)
[2022-02-13] MEDS: ONDANSETRON 4 MG/2 ML VIAL IV PRN ×2 (08:25→20:58)
[2022-02-13] MEDS: POLYETHYLENE GLYCOL POWDER 17 GM PACK PO SCH (08:37)
[2022-02-13] MEDS: MENTHOL/ZINC OXIDE OINT 71 GM JAR TOP SCH ×2 (08:38→20:50)
[2022-02-13] MEDS: MELATONIN 3 MG TABLET PO PRN (20:48)
[2022-02-13] MEDS: NORTRIPTYLINE 25 MG CAPSULE PO SCH (20:49)
[2022-02-14 05:53] LABS: Basophils # 0.1 10*3/uL (0.0-0.2); Basophils % 0.7 % (0.0-0.8); Eosinophils # 0.4 10*3/uL (0.0-0.87); Eosinophils % 4.6 % (0.00-10.9); Hematocrit 29.1 VOL% (35.7-47.0); Hemoglobin 9.2 GM/DL (12.0-16.0); Immature Granulocytes % 0.5 %; Immature Granulocytes Absolute 0.04 #; Lymphocytes # 2.6 10*3/uL (1.4-4.0); Lymphocytes % 29.8 % (21.3-54.2); Mean Corpuscular HGB Conc 31.6 GM/DL (32-36); Mean Corpuscular Volume 91.8 FL (87-102); Mean Platelet Volume 8.3 FL (9.6-12.0); Monocytes # 0.7 10*3/uL (0.11-0.8); Monocytes % 8.4 % (1.7-12.7); Platelet Count 311 T/CUMM (130-400); Red Blood Count 3.17 MC/CUMM (3.8-5.5); Red Cell Distribution Width 13.7 % (9.3-17.3); White Blood Count 8.8 T/CUMM (4-12)
[2022-02-14 06:02] LABS: Calcium 9.9 MG/DL (8.5-10.1); Osmolality,Calculated 289.4 MOS/KG (273-304); Potassium 4.5 MMOL/L (3.5-5.1)
[2022-02-14] MEDS: BUMETANIDE 1 MG TABLET PO SCH (09:35)
[2022-02-14] MEDS: cloNIDine 0.1 MG TABLET PO SCH ×2 (09:35→21:37)
[2022-02-14] MEDS: APIXABAN 2.5 MG TABLET PO SCH ×2 (09:36→21:36)
[2022-02-14] MEDS: PANTOPRAZOLE 40 MG TABLET PO SCH ×2 (09:36→21:35)
[2022-02-14] MEDS: guaiFENesin/DM ER 600-30 MG TABLET PO SCH ×2 (09:36→21:36)
[2022-02-14] MEDS: ASPIRIN CHEW 81 MG TABLET PO SCH (09:36)
[2022-02-14] MEDS: NICOTINE 21 MG/24 HR PATCH TRANSDERM SCH (09:37)
[2022-02-14] MEDS: oxyCODONE IR 5 MG TABLET PO SCH ×4 (09:37→23:38)
[2022-02-14] MEDS: buPROPion SR 150 MG TABLET PO SCH ×2 (09:45→21:36)
[2022-02-14] MEDS: MENTHOL/ZINC OXIDE OINT 71 GM JAR TOP SCH ×2 (09:50→21:36)
[2022-02-14] MEDS: POLYETHYLENE GLYCOL POWDER 17 GM PACK PO SCH (10:31)
[2022-02-14] MEDS: DOCUSATE SODIUM 100 MG CAPSULE PO SCH ×2 (10:31→21:36)
[2022-02-14] MEDS: ONDANSETRON 4 MG/2 ML VIAL IV PRN ×2 (10:47→21:35)
[2022-02-14] MEDS: metOLazone 2.5 MG TABLET PO SCH (10:47)
[2022-02-14] MEDS: NORTRIPTYLINE 25 MG CAPSULE PO SCH (21:35)
[2022-02-14] MEDS: MELATONIN 3 MG TABLET PO PRN (21:35)
[2022-02-15 09:03] LABS: Calcium 9.9 MG/DL (8.5-10.1); Osmolality,Calculated 287.7 MOS/KG (273-304); Potassium 4.5 MMOL/L (3.5-5.1)
[2022-02-15] MEDS: ASPIRIN CHEW 81 MG TABLET PO SCH (09:11)
[2022-02-15] MEDS: oxyCODONE IR 5 MG TABLET PO SCH ×4 (09:11→21:27)
[2022-02-15] MEDS: cloNIDine 0.1 MG TABLET PO SCH ×2 (09:12→21:28)
[2022-02-15] MEDS: APIXABAN 2.5 MG TABLET PO SCH ×2 (09:12→21:29)
[2022-02-15] MEDS: guaiFENesin/DM ER 600-30 MG TABLET PO SCH ×2 (09:12→21:54)
[2022-02-15] MEDS: buPROPion SR 150 MG TABLET PO SCH ×2 (09:12→21:29)
[2022-02-15] MEDS: NICOTINE 21 MG/24 HR PATCH TRANSDERM SCH (09:13)
[2022-02-15] MEDS: ONDANSETRON 4 MG/2 ML VIAL IV PRN ×2 (09:13→21:44)
[2022-02-15] MEDS: PANTOPRAZOLE 40 MG TABLET PO SCH ×2 (09:13→21:28)
[2022-02-15] MEDS: DOCUSATE SODIUM 100 MG CAPSULE PO SCH ×2 (09:14→21:28)
[2022-02-15] MEDS: POLYETHYLENE GLYCOL POWDER 17 GM PACK PO SCH (11:06)
[2022-02-15] MEDS: MENTHOL/ZINC OXIDE OINT 71 GM JAR TOP SCH ×2 (11:06→21:19)
[2022-02-15] MEDS: NORTRIPTYLINE 25 MG CAPSULE PO SCH (21:28)
[2022-02-15] MEDS: MELATONIN 3 MG TABLET PO PRN (21:29)
[2022-02-16 05:51] LABS: Calcium 9.3 MG/DL (8.5-10.1); Osmolality,Calculated 294.2 MOS/KG (273-304); Potassium 4.7 MMOL/L (3.5-5.1)
[2022-02-16] MEDS: oxyCODONE IR 5 MG TABLET PO SCH ×4 (09:26→23:48)
[2022-02-16] MEDS: ASPIRIN CHEW 81 MG TABLET PO SCH (09:26)
[2022-02-16] MEDS: PANTOPRAZOLE 40 MG TABLET PO SCH ×2 (09:26→22:40)
[2022-02-16] MEDS: guaiFENesin/DM ER 600-30 MG TABLET PO SCH ×2 (09:27→22:39)
[2022-02-16] MEDS: buPROPion SR 150 MG TABLET PO SCH ×2 (09:27→22:40)
[2022-02-16] MEDS: DOCUSATE SODIUM 100 MG CAPSULE PO SCH ×2 (09:27→22:39)
[2022-02-16] MEDS: cloNIDine 0.1 MG TABLET PO SCH ×2 (09:27→22:44)
[2022-02-16] MEDS: NICOTINE 21 MG/24 HR PATCH TRANSDERM SCH (09:27)
[2022-02-16] MEDS: APIXABAN 2.5 MG TABLET PO SCH ×2 (09:27→22:40)
[2022-02-16] MEDS: ONDANSETRON 4 MG/2 ML VIAL IV PRN ×2 (09:33→22:45)
[2022-02-16] MEDS: MENTHOL/ZINC OXIDE OINT 71 GM JAR TOP SCH ×2 (11:18→22:20)
[2022-02-16] MEDS: POLYETHYLENE GLYCOL POWDER 17 GM PACK PO SCH (11:18)
[2022-02-16] MEDS: MELATONIN 3 MG TABLET PO PRN (22:39)
[2022-02-16] MEDS: NORTRIPTYLINE 25 MG CAPSULE PO SCH (22:39)
[2022-02-17 06:55] LABS: Albumin 3.2 G/DL (3.4-5.0); Bilirubin,Total 0.5 MG/DL (0.20-1.00); Calcium 9.9 MG/DL (8.5-10.1); Osmolality,Calculated 286.7 MOS/KG (273-304); Potassium 4.6 MMOL/L (3.5-5.1)
[2022-02-17] MEDS: guaiFENesin/DM ER 600-30 MG TABLET PO SCH ×2 (09:00→21:54)
[2022-02-17] MEDS: BUMETANIDE 1 MG TABLET PO SCH (09:00)
[2022-02-17] MEDS: buPROPion SR 150 MG TABLET PO SCH ×2 (09:00→21:53)
[2022-02-17] MEDS: PANTOPRAZOLE 40 MG TABLET PO SCH ×2 (09:00→21:55)
[2022-02-17] MEDS: NICOTINE 21 MG/24 HR PATCH TRANSDERM SCH (09:01)
[2022-02-17] MEDS: ASPIRIN CHEW 81 MG TABLET PO SCH (09:01)
[2022-02-17] MEDS: oxyCODONE IR 5 MG TABLET PO SCH ×4 (09:01→21:54)
[2022-02-17] MEDS: DOCUSATE SODIUM 100 MG CAPSULE PO SCH ×2 (09:01→21:52)
[2022-02-17] MEDS: cloNIDine 0.1 MG TABLET PO SCH ×2 (09:01→21:55)
[2022-02-17] MEDS: ONDANSETRON 4 MG/2 ML VIAL IV PRN ×2 (09:02→21:51)
[2022-02-17] MEDS: APIXABAN 2.5 MG TABLET PO SCH ×2 (09:02→21:54)
[2022-02-17] MEDS: metOLazone 2.5 MG TABLET PO SCH (17:51)
[2022-02-17] MEDS: MENTHOL/ZINC OXIDE OINT 71 GM JAR TOP SCH ×2 (17:54→21:59)
[2022-02-17] MEDS: POLYETHYLENE GLYCOL POWDER 17 GM PACK PO SCH (17:55)
[2022-02-17] MEDS: NORTRIPTYLINE 25 MG CAPSULE PO SCH (21:54)
[2022-02-17] MEDS: MELATONIN 3 MG TABLET PO PRN (21:55)
[2022-02-18] MEDS ORDERED: oxyCODONE IR 5 MG TABLET PO ONE (05:39)
[2022-02-18] MEDS: SIMETHICONE CHEW 125 MG TABLET PO PRN ×2 (05:39→19:38)
[2022-02-18] MEDS: BUMETANIDE 1 MG TABLET PO SCH (09:46)
[2022-02-18] MEDS: ASPIRIN CHEW 81 MG TABLET PO SCH (09:46)
[2022-02-18] MEDS: APIXABAN 2.5 MG TABLET PO SCH ×2 (09:46→21:11)
[2022-02-18] MEDS: DOCUSATE SODIUM 100 MG CAPSULE PO SCH ×2 (09:46→21:10)
[2022-02-18] MEDS: buPROPion SR 150 MG TABLET PO SCH ×2 (09:47→21:10)
[2022-02-18] MEDS: PANTOPRAZOLE 40 MG TABLET PO SCH ×2 (09:47→21:11)
[2022-02-18] MEDS: oxyCODONE IR 5 MG TABLET PO SCH ×5 (09:47→21:11)
[2022-02-18] MEDS: guaiFENesin/DM ER 600-30 MG TABLET PO SCH ×2 (09:47→21:10)
[2022-02-18] MEDS: cloNIDine 0.1 MG TABLET PO SCH ×2 (09:47→21:10)
[2022-02-18] MEDS: NICOTINE 21 MG/24 HR PATCH TRANSDERM SCH (09:50)
[2022-02-18] MEDS: MENTHOL/ZINC OXIDE OINT 71 GM JAR TOP SCH ×2 (09:51→21:11)
[2022-02-18] MEDS: POLYETHYLENE GLYCOL POWDER 17 GM PACK PO SCH (09:52)
[2022-02-18] MEDS: ONDANSETRON 4 MG/2 ML VIAL IV PRN ×2 (11:39→21:10)
[2022-02-18] MEDS ORDERED: ALUM/MAG/SIMETH/LIDO VISC 1:1 30 ML BOTTLE PO ONE ×2 (12:46→19:56)
[2022-02-18] MEDS: metOLazone 2.5 MG TABLET PO SCH (13:05)
[2022-02-18] MEDS: ALBUTEROL/IPRATROPIUM 3 ML NEB RESP TX PRN ×2 (17:30→19:50)
[2022-02-18] MEDS: MELATONIN 3 MG TABLET PO PRN (21:10)
[2022-02-18] MEDS: NORTRIPTYLINE 25 MG CAPSULE PO SCH (21:11)
[2022-02-19] MEDS: ALBUTEROL/IPRATROPIUM 3 ML NEB RESP TX PRN ×2 (03:55→09:14)
[2022-02-19] MEDS: ASPIRIN CHEW 81 MG TABLET PO SCH (09:31)
[2022-02-19] MEDS: buPROPion SR 150 MG TABLET PO SCH ×2 (09:32→22:03)
[2022-02-19] MEDS: PANTOPRAZOLE 40 MG TABLET PO SCH ×2 (09:32→22:04)
[2022-02-19] MEDS: metOLazone 2.5 MG TABLET PO SCH (09:32)
[2022-02-19] MEDS: guaiFENesin/DM ER 600-30 MG TABLET PO SCH ×2 (09:32→22:05)
[2022-02-19] MEDS: BUMETANIDE 1 MG TABLET PO SCH (09:32)
[2022-02-19] MEDS: DOCUSATE SODIUM 100 MG CAPSULE PO SCH ×2 (09:32→22:05)
[2022-02-19] MEDS: APIXABAN 2.5 MG TABLET PO SCH ×2 (09:32→22:05)
[2022-02-19] MEDS: oxyCODONE IR 5 MG TABLET PO SCH ×4 (09:33→22:04)
[2022-02-19] MEDS: cloNIDine 0.1 MG TABLET PO SCH ×2 (09:34→22:05)
[2022-02-19] MEDS: POLYETHYLENE GLYCOL POWDER 17 GM PACK PO SCH (09:34)
[2022-02-19] MEDS: MENTHOL/ZINC OXIDE OINT 71 GM JAR TOP SCH ×2 (09:34→22:08)
[2022-02-19] MEDS: NICOTINE 21 MG/24 HR PATCH TRANSDERM SCH (09:34)
[2022-02-19] MEDS: ONDANSETRON 4 MG/2 ML VIAL IV PRN ×2 (12:29→22:03)
[2022-02-19] MEDS: NORTRIPTYLINE 25 MG CAPSULE PO SCH (22:03)
[2022-02-19] MEDS: MELATONIN 3 MG TABLET PO PRN (22:04)
[2022-02-20 08:04] VITALS: BP 114/83
[2022-02-20] MEDS: DOCUSATE SODIUM 100 MG CAPSULE PO SCH (08:25)
[2022-02-20] MEDS: NICOTINE 21 MG/24 HR PATCH TRANSDERM SCH (08:25)
[2022-02-20] MEDS: ASPIRIN CHEW 81 MG TABLET PO SCH (08:26)
[2022-02-20] MEDS: oxyCODONE IR 5 MG TABLET PO SCH (08:26)
[2022-02-20] MEDS: metOLazone 2.5 MG TABLET PO SCH (08:26)
[2022-02-20] MEDS: BUMETANIDE 1 MG TABLET PO SCH (08:26)
[2022-02-20] MEDS: buPROPion SR 150 MG TABLET PO SCH (08:26)
[2022-02-20] MEDS: APIXABAN 2.5 MG TABLET PO SCH (08:26)
[2022-02-20] MEDS: guaiFENesin/DM ER 600-30 MG TABLET PO SCH (08:26)
[2022-02-20] MEDS: cloNIDine 0.1 MG TABLET PO SCH (08:26)
[2022-02-20] MEDS: PANTOPRAZOLE 40 MG TABLET PO SCH (08:26)
[2022-02-20] MEDS: MENTHOL/ZINC OXIDE OINT 71 GM JAR TOP SCH (08:31)
[2022-02-20] MEDS: POLYETHYLENE GLYCOL POWDER 17 GM PACK PO SCH (08:31)
[2022-02-20] MEDS: ONDANSETRON 4 MG/2 ML VIAL IV PRN (08:31)
== END 2022-02-20 12:35 | disposition home or self-care (01) | DRG 288 ==
LOC: N.ED 21:35 → N.EDINP 01-03 00:59 → SUATTDRO 01-03 00:59 → N.3E 01-03 01:56
PROVIDERS: ADMIT Nurse Practitioner Family; ATTEND Family Medicine